=== PATIENT | female | born 1970 | race Two or more races ===

== ENCOUNTER 2024-08-06 06:27 | Inpatient (IN) | payer MEDICAID ==
[~2024-08-06] VITALS: Ht 167.6 cm; Wt 87.3 kg
[~2024-08-06 06:27] MED LIST: IBU600T PO; LOSA100T33 PO; OMEG1CHW2 PO; PANT40TA2 PO
--- NOTE | 2024-08-06 06:56 | ECG ---
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
[2024-08-06 07:30] VITALS: PULSE 74; RESP 20; O2SAT 98
--- NOTE | 2024-08-06 07:36 | ED.PDOC ---
History of Present Illness HPI Comments 53 y/o F, with a history of DM, GERD, HLD, HTN, fatty liver disease, and cholecystectomy, presents with c/o left-sided chest and shoulder pain, shortness of breath, and nausea, today. Per EMS report, patient is a Armenian speaker and endorses on having constant chest wall pain that has been persisting for the past for 2 months. Pain is always there. Pain is unprovoked without palliative or provacative factors. Pain was worse today at around 0200 and 911 was called. Patient comments on pain being pressure-like in quality and rates it a 9/10 in severity at its peak. Patient was noted to have had vitals stable and within normal limits on scene and en route in addition to being given 324mg ASA and 24mg NTG. At time of assessment, patient states on pain improving to a 7/10 now and reports no further relevant or pertinent information, such as recent injuries, sick contact, or strenuous activities. She denies having any palpitations, cough, fever, chills, vomiting, or other associated symptoms or modifiers at this time. Chief Complaint: Chest Pain Time Seen by MD: 07:15 Primary Care Provider: LISY Reviewed Notes: Nurses Notes, Medications, Allergies Allergies: Coded Allergies: NO KNOWN ALLERGIES (Unverified , 01/07/14) Home Meds Active Scripts Ibuprofen Micronized (MOTRIN TABLET) 600 Mg Tb, 600 MG PO TID PRN for 14 Days, #42 TAB *Black box warning-NSAIDS can increase risk of ID & hypertension, GI irritation, ulceration, bleed, perferation. Do not use post cardiac surgery. Use short duration/lowest effective dose. Prov:CLAYTON LAMBERT COMPUTER SUPPORT SPECIALIST INSTRUCTOR 11/19/23 Pantoprazole Sodium Sesquihydr (Protonix) 40 Mg Tab, 40 MG PO DAILY for 30 Days, #30 TAB Prov:CLAYTON LAMBERT COMPUTER SUPPORT SPECIALIST INSTRUCTOR 11/19/23 Reported Medications Howard 3 Fatty Acids-Howard 6 FA (Howard Dha) 1 Chw Chw, 1000 TAB PO DAILY, TAB.CHEW 11/18/23 Losartan Potassium & Hydrochlo (Losartan Potassium/Hydroc) 1 Tab Tab, 1 TAB PO DAILY, #30 TAB 5 Refills 11/18/23 Information Source: Patient Mode of Arrival: EMS Severity: Moderate Timing: Months Duration: Since onset Prehospital treatment: None Past Medical History PAST MEDICAL HISTORY: DM, GERD, High Lipids, HTN, Liver (fatty liver disease ) Surgical History: Cholecystectomy [employer] History: No Pertinent [employer] History Family History Family History: Family hx of DM Social History Smoker: Non-Smoker Alcohol: Denies ETOH Use Drugs: Denies Drug Use Lives In: Home Respiratory: reports: shortness of breath Cardiovascular: reports: chest pain, others (left-shoulder ) Gastrointestinal: reports: nausea All Other Systems: Reviewed and Negative (negative unless otherwise stated above or in HPI) Physical Exam General Appearance: No Apparent Distress, Obese HEENT: Normal ENT Inspection, Pharynx Normal, TMs Normal Neck: Full Range of Motion, Non-Tender, Normal, Normal Inspection Respiratory: Chest Non-Tender, Lungs Clear, No Accessory Muscle Use, No Respiratory Distress, Normal Breath Sounds Cardiovascular: No Edema, No JVD, No Murmur, No Gallop, Normal Peripheral Pulses, Regular Rate/Rhythm Breast Exam: Deferred Gastrointestinal: No Organomegaly, Non Tender, No Pulsatile Mass, Normal Bowel Sounds, Soft Genitalia: Deferred Pelvic: Deferred Rectal: Deferred Extremities: No calf tenderness, Normal capillary refill, Normal inspection, Normal range of motion, Non-tender, No pedal edema Musculoskeletal : Apperance: Normal Neurologic: Alert, digital media associate II-XII nml as Tested, No Motor Deficits, Normal Affect, Normal Mood, No Sensory Deficits Cerebellar Function: Normal Reflexes: Normal Skin: Dry, Normal Color, Warm Lymphatic: No Adenopathy Was a procedure done? Was a procedure done?: No EKG EKG : Pulse Rate (adult): 67 [place]: Normal Cardiac Rhythm: NSR Block: None Hypertrophy: None ST: Normal Differential Dx Considerations may include: ID, ACS, PE, PNA, URI, costochondritis, pericarditis, musculoskeletal pain, angina, GERD, gastritis, viral syndrome X-Ray, Labs, Meds, VS Vital Signs Date Time Temp Pulse Resp B/P (MAP) Pulse Ox O2 Delivery O2 Flow Rate FiO2 08/06/24 07:36 67 08/06/24 07:30 74 20 98 Room Air* 0 21 08/06/24 06:39 98.2 89 18 134/73 (93) 98 08/06/24 06:28 67 Lab Test 08/06/24 07:22 Range/Units White Blood Count 8.3 4.4-10.8 10^3/uL Red Blood Count 4.69 4.0-5.20 10^6/uL Hemoglobin 14.4 12.2-16.2 g/dL Hematocrit 41.9 36.0-46.0 % Mean Corpuscular Volume 89.4 80.0-100.0 fL Mean Corpuscular Hemoglobin 30.8 28.0-32.0 pg Mean Corpuscular Hemoglobin Concent 34.5 32.0-36.0 g/dL Red Cell Distribution Width 13.1 11.8-14.3 % Platelet Count 255 140-450 10^3/uL Mean Platelet Volume 8.5 6.9-10.8 fL Neutrophils (%) (Auto) 55.4 37.0-80.0 % Lymphocytes (%) (Auto) 36.5 10.0-50.0 % Monocytes (%) (Auto) 6.2 0.0-12.0 % Eosinophils (%) (Auto) 1.3 0.0-7.0 % Basophils (%) (Auto) 0.6 0.0-2.0 % Neutrophils # (Auto) 4.6 1.6-8.6 10 ^3/uL Lymphocytes # (Auto) 3.0 0.4-5.4 10 ^3/uL Monocytes # (Auto) 0.5 0-1.3 10 ^3/uL Eosinophils # (Auto) 0.1 0-0.8 10 ^3/uL Basophils # (Auto) 0.1 0-0.2 10 ^3/uL Nucleated Red Blood Cells 0.1 % Prothrombin Time 10.4 9.3-11.8 sec Prothrombin Time INR 0.98 0.9-1.15 Activated Partial Thromboplast Time 27.5 24.5-34.5 SEC D-Dimer, Quantitative 0.49 0.0-0.49 mg/L FEU Sodium Level 140 136-145 mmol/L Potassium Level 4.0 3.5-5.1 mmol/L Chloride Level 105 98-107 mmol/L Carbon Dioxide Level 27 20-31 mmol/L Anion Gap 8 5-15 Blood Urea Nitrogen 14 9-23 mg/dL Creatinine 0.83 0.550-1.02 mg/dL Glomerular Filtration Rate Calc 84 >90 mL/min BUN/Creatinine Ratio 16.9 10.0-20.0 Serum Glucose 147 H 74-106 mg/dL Calcium Level 9.8 8.7-10.4 mg/dL Total Bilirubin Pending Aspartate Amino Transferase (AST) 30 13-40 U/L Alanine Aminotransferase (ALT) 42 H 7-40 U/L Alkaline Phosphatase 89 46-116 U/L Troponin I High Sensitivity < 3 L </=34 ng/L B-Type Natriuretic Peptide 12.58 0-100 pg/mL Total Protein 7.0 5.7-8.2 g/dL Albumin 4.5 3.2-4.8 g/dL X-Ray, Labs, Meds, VS Comment This 53-year-old female with multiple cardiac risk factors presents secondary to left-sided chest pain with radiation that became acutely worse at 2:00 a.m. this morning. She denies any palliative provocative factors that are known to increase or decrease the pain. Her heart score is 4. As such, she will be admitted for further workup management of her likely ACS. I am concerned that she may have unstable angina Time of 1ST Reevaluation: 07:45 Reevaluation 1ST: Unchanged Patient Education/Counseling: Diagnosis, Treatment Family Education/Counseling: No Family Present Departure 1 Departure Time of Disposition: 08:18 Impression: Primary Impression: Chest pain Additional Impression: ACS (acute coronary syndrome) Disposition: 09 ADMITTED INPATIENT Admit to: [facility] Condition: Serious Critical Care Note Critical Care Time?: No Stability Stability form required: No Heart Score Heart Score: Heart Score Response (Comments) Value History Moderate Suspicious 1 EKG Normal 0 Age 45-64 1 Risk Factors >3 or Hx ASHD 2 Troponin Normal limit 0 Total 4 I personally scribed for LORETO FORD MD ([email or web address]) on 08/06/24 at 07:36. Electronically submitted by Quan Cox [email or web address]). LORETO FORD MD Aug 06, 2024 07:36
[2024-08-06 07:41] LABS: Basophils # (auto) 0.1 10 ^3/uL (0-0.2); Basophils % (auto) 0.6 % (0.0-2.0); Eosinophils # (auto) 0.1 10 ^3/uL (0-0.8); Eosinophils % (auto) 1.3 % (0.0-7.0); Hematocrit 41.9 % (36.0-46.0); Hemoglobin 14.4 g/dL (12.2-16.2); Lymphocytes % (auto) 36.5 % (10.0-50.0); Mean Corpuscular Hemoglobin 30.8 pg (28.0-32.0); Mean Corpuscular Hgb Conc. 34.5 g/dL (32.0-36.0); Mean Corpuscular Volume 89.4 fL (80.0-100.0); Monocytes # (auto) 0.5 10 ^3/uL (0-1.3); Monocytes % (auto) 6.2 % (0.0-12.0); Neutrophils # (auto) 4.6 10 ^3/uL (1.6-8.6); Neutrophils % (auto) 55.4 % (37.0-80.0); Nucleated Red Blood Cells % 0.1 %; Platelet Count (auto) 255 10^3/uL (140-450); Red Blood Cells 4.69 10^6/uL (4.0-5.20); Red Cell Distribution Width 13.1 % (11.8-14.3); White Blood Cell 8.3 10^3/uL (4.4-10.8)
[2024-08-06 07:59] LABS: INR 0.98 (0.9-1.15); Partial Thromboplastin Time 27.5 SEC (24.5-34.5); Prothrombin Time 10.4 sec (9.3-11.8)
[2024-08-06 08:03] LABS: Alanine Aminotransferase 42 U/L (7-40); Albumin 4.5 g/dL (3.2-4.8); Alkaline Phosphatase 89 U/L (46-116); Anion Gap 8 (5-15); Aspartate Aminotransferase 30 U/L (13-40); BUN/Creatinine Ratio 16.9 (10.0-20.0); Blood Urea Nitrogen 14 mg/dL (9-23); Calcium 9.8 mg/dL (8.7-10.4); Carbon Dioxide 27 mmol/L (20-31); Chloride 105 mmol/L (98-107); Glucose 147 mg/dL (74-106); Sodium 140 mmol/L (136-145)
[2024-08-06 08:09] LABS: Bilirubin, Total 0.4 mg/dL (0.2-1.0)
[2024-08-06 11:04] LABS: Urine Bacteria FEW /hpf (None Seen); Urine Blood 2+ /uL (Negative); Urine Clarity Turbid (Clear); Urine Color Yellow (Yellow); Urine Hyaline Cast FEW /lpf (0 - 2); Urine Mucus FEW (None Seen); Urine Protein, UAD 3+ (Negative); Urine Specific Gravity 1.026 (1.001-1.035); Urine Squamous Epithelial Cell FEW /hpf (<5); Urine Urobilinogen Normal (Negative); Urine WBC 12 /HPF (0-5)
--- NOTE | 2024-08-06 11:13 | DVH ---
EXAM: XY CHEST PORTABLE Indication: chest pain Technique: Single frontal view of the chest was obtained Comparison: XY CHEST PORTABLE on DOS: 11/17/23 FINDINGS: Lines and Tubes: None Lungs: No focal consolidation. Pleura: No effusion. No pneumothorax. Cardiomediastinal contours: Unremarkable Bones: No acute osseous abnormality. IMPRESSION: No acute cardiopulmonary disease.
[2024-08-06] MEDS ORDERED: ONDANSETRON HCL 4 MG/2 ML VIAL IV PRN (11:15)
[2024-08-06] MEDS ORDERED: MORPHINE SULFATE 4 MG/ML SYR/VIAL IV PRN (11:15)
[2024-08-06] MEDS ORDERED: SIMV10TA20 (11:25)
[2024-08-06] MEDS ORDERED: DEXTROSE (50%) 50ML SYRG IV PRN (11:30)
[2024-08-06] MEDS: InsuLIN REG 1unit/0.01ml Soln (100units/ml) SC SCH (11:30)
--- NOTE | 2024-08-06 11:32 | DVHHP2 ---
History of Present Illness Reason for Visit: Chest pain History of Present Illness Davina Medeiros is a 53-year-old female with past medical history of hypertension, hyperlipidemia, diabetes, GERD, fatty liver disease, and cholecystectomy who presents to the ED for chest pain x2 months. Patient reports that the chest pain radiates to her left shoulder with associated shortness of breath and nausea. Patient reports the pain 7/10 pressure-like and constant. She also reports that this was ongoing a year ago had gone to see her PCP recently and was given a referral to a tool/die maker when some appointment time of 1 year from now. Patient reports that there are no triggering or alleviating factors. She also states that the pain is still present when she is resting. Patient denies any recent illnesses, recent trauma, vomiting, taqueria rrhea, fever, chills, lightheadedness, weakness, recent travels, recent ingestion of spoiled food and dizziness. Cardiovascular: HTN, hyperipidemia GI: GERD Endocrine: Diabetes Past Medical History Fatty liver disease Past Surgical History: Cholecystectomy Family History: None Smoke: No ALCOHOL: none Drugs: None Lives: Roommate Domestic Violence: Neg Review of Systems Constitutional: No: Fever, Chills, Sweats, Weakness, Malaise, Other Eyes: No: Pain, Vision change, Conjunctivae inflammation, Eyelid inflammation, Other, Redness ENT: No: Ear pain, Ear discharge, Nose pain, Nose discharge, Nose congestion, Mouth pain, Mouth swelling, Throat pain, Throat swelling, Other Respiratory: Shortness of breath; No: Cough, Dry, SOB with excertion, Wheezing, Hemoptysis, Pleuritic Pain, Sputum, Wheezing, Other Cardiovascular: Chest Pain; No: Palpitations, Orthopnea, Paroxysmal Noc. Dyspnea, Edema, Lt Headedness, Other Gastrointestinal: Nausea; No: Vomiting, Abdominal Pain, Diarrhea, Constipation, Melena, Hematochezia, Other Genitourinary: No Dysuria, No Frequency, No Incontinence, No Hematuria, No Retention, No Other Musculoskeletal: shoulder pain, arm pain; No: other, neck pain, back pain, hand pain, leg pain, foot pain Skin: No: Rash, Lesions, Jaundice, Bruising, Other Neurological: No: Weakness, Numbness, Incoordination, Change in speech, Confusion, Seizures, Other Allergies: Coded Allergies: NO KNOWN ALLERGIES (Unverified , 01/07/14) Exam Vital Signs Vital Signs Date Time Temp Pulse Resp B/P (MAP) Pulse Ox O2 Delivery O2 Flow Rate FiO2 08/06/24 08:39 98.2 62 18 131/79 (96) 95 98.2 08/06/24 08:39 Room Air 08/06/24 07:30 0 21 General Appearance: Alert, Oriented X3, Cooperative, No acute distress HEENT: Atraumatic, PERRLA, EOMI, Mucous membr. moist/pink Respiratory: Normal air movement Cardiovascular: Regular rate, Normal S1, Normal S2, No murmurs Abdominal: Normal bowel sounds, Soft, No tenderness, No hepatospenomegaly, No masses Extremities: No clubbing, No cyanosis, No edema, Normal pulses, No tenderness/swelling Skin: No rashes, No breakdown, No significant lesion Neuro: Normal gait, Normal speech, Strength at 5/5 X4 ext, Normal tone, Sensation intact Psych/Mental Status: Mental status NL, Mood NL Labs/Xrays Labs Test 08/06/24 08:37 08/06/24 08:17 08/06/24 07:22 Range/Units Urine Color Yellow Yellow Urine Clarity Turbid H Clear Urine pH 6.0 5.0-9.0 Urine Specific [place] 1.026 1.001-1.035 Urine Protein 3+ H Negative Urine Ketones Negative Negative Urine Blood 2+ H Negative /uL Urine Nitrite Negative Negative Urine Bilirubin Negative Negative Urine Urobilinogen Normal Negative mg/dL Urine Leukocyte Esterase 2+ Negative /uL Urine RBC 20 0 - 4 /hpf Urine Microscopic WBC 12 H 0-5 /HPF Urine Squamous Epithelial Cells Few <5 /hpf Urine Bacteria Few H None Seen /hpf Urine Hyaline Casts Few 0 - 2 /lpf Urine Mucus Few None Seen Urine Glucose Normal Normal mg/dL Urine Test Negative Negative Troponin I High Sensitivity < 3 L </=34 ng/L White Blood Count 8.3 4.4-10.8 10^3/uL Red Blood Count 4.69 4.0-5.20 10^6/uL Hemoglobin 14.4 12.2-16.2 g/dL Hematocrit 41.9 36.0-46.0 % Mean Corpuscular Volume 89.4 80.0-100.0 fL Mean Corpuscular Hemoglobin 30.8 28.0-32.0 pg Mean Corpuscular Hemoglobin Concent 34.5 32.0-36.0 g/dL Red Cell Distribution Width 13.1 11.8-14.3 % Platelet Count 255 140-450 10^3/uL Mean Platelet Volume 8.5 6.9-10.8 fL Neutrophils (%) (Auto) 55.4 37.0-80.0 % Lymphocytes (%) (Auto) 36.5 10.0-50.0 % Monocytes (%) (Auto) 6.2 0.0-12.0 % Eosinophils (%) (Auto) 1.3 0.0-7.0 % Basophils (%) (Auto) 0.6 0.0-2.0 % Neutrophils # (Auto) 4.6 1.6-8.6 10 ^3/uL Lymphocytes # (Auto) 3.0 0.4-5.4 10 ^3/uL Monocytes # (Auto) 0.5 0-1.3 10 ^3/uL Eosinophils # (Auto) 0.1 0-0.8 10 ^3/uL Basophils # (Auto) 0.1 0-0.2 10 ^3/uL Nucleated Red Blood Cells 0.1 % Prothrombin Time 10.4 9.3-11.8 sec Prothrombin Time INR 0.98 0.9-1.15 Activated Partial Thromboplast Time 27.5 24.5-34.5 SEC D-Dimer, Quantitative 0.49 0.0-0.49 mg/L FEU Sodium Level 140 136-145 mmol/L Potassium Level 4.0 3.5-5.1 mmol/L Chloride Level 105 98-107 mmol/L Carbon Dioxide Level 27 20-31 mmol/L Anion Gap 8 5-15 Blood Urea Nitrogen 14 9-23 mg/dL Creatinine 0.83 0.550-1.02 mg/dL Glomerular Filtration Rate Calc 84 >90 mL/min BUN/Creatinine Ratio 16.9 10.0-20.0 Serum Glucose 147 H 74-106 mg/dL Calcium Level 9.8 8.7-10.4 mg/dL Total Bilirubin 0.4 0.2-1.0 mg/dL Aspartate Amino Transferase (AST) 30 13-40 U/L Alanine Aminotransferase (ALT) 42 H 7-40 U/L Alkaline Phosphatase 89 46-116 U/L B-Type Natriuretic Peptide 12.58 0-100 pg/mL Total Protein 7.0 5.7-8.2 g/dL Albumin 4.5 3.2-4.8 g/dL Assessment/Plan Assessment/Plan Assessment/Plan: Unstable angina UTI IV ABx- ceftriaxone HCG negative Aspirin and nitro given in ED UA EKG Troponin negative x2 BNP D-dimer Chest x-ray PT/PTT Mag level Magnesium IV ordered ACS protocol A.m. labs Echo ordered Last echo on 10/29/2023 EF 55% TSH Lipid UDS Diabetes type 2 uncontrolled Hemoglobin A1c ISS and Accu-Cheks Chronic hypertension Continue home medications Chronic hyperlipidemia Continue medications Chronic GERD Protonix History of fatty liver disease Follow up outpatient with PCP FEN/PPX Diet Hep-Lock DVT prophylaxis not indicated patient ambulating PUD prophylaxis-continue home medications, Protonix home medications reconciled discussed plan of care with patient and nurse Admit to tele Plan discussed with: Patient Date of Service: Aug 06, 2024 Billing Provider: AMITA GOODRICH Common Visit Codes: [id number] INP/OBS CARE (HIGH) AMITA GOODRICH Aug 06, 2024 11:32
[2024-08-06] MEDS: ACCU-CHEK COMFORT CURVE STRIP VI SCH (11:43)
[2024-08-06] MEDS: ASPirin 81 mg TAB PO SCH (11:44)
[2024-08-06] MEDS: MAGNESIUM SULFATE 1GM/100ML 100 ML IV ONE (12:14)
[2024-08-06 13:01] LABS: Cannabinoid Screen, Urine Neg (NEGATIVE); Cocaine Screen, Urine Neg (NEGATIVE); Opiate Scree,Urine Neg (NEGATIVE); Phencyclidine Screen, Urine Neg (NEGATIVE)
[2024-08-06 13:06] LABS: Triglycerides 121 mg/dL (< 150)
[2024-08-06 13:08] LABS: HDL Cholesterol 57 mg/dL (40-59)
[2024-08-06 13:09] LABS: Cholesterol 200 mg/dL (< 200); LDL Cholesterol 142 mg/dL (< 100)
[2024-08-06 13:21] LABS: Barbiturate Scree,Urine Neg (NEGATIVE); Benzodiazephine Screen, Urine Neg (NEGATIVE)
[2024-08-06 14:04] LABS: Amphetamine Screen, Urine Neg (NEGATIVE)
[2024-08-06 15:20] VITALS: BP 134/86; PULSE 62; RESP 18; TEMP 98.2; O2SAT 98
[2024-08-06 16:58] VITALS: BP 134/86; PULSE 62; RESP 18; TEMP 98.6; O2SAT 98
[2024-08-06 20:57] VITALS: BP 134/79; PULSE 63; RESP 18; TEMP 98; O2SAT 98
[2024-08-06] MEDS: ATORVASTATIN 20 MG TAB PO SCH (21:55)
[2024-08-06 22:15] VITALS: BP 147/76; PULSE 60; RESP 18; TEMP 98.1; O2SAT 97
[2024-08-06] MEDS: ACETAMINOPHEN 325 MG TAB PO PRN (23:52)
[2024-08-07] VITALS (8 sets, daily range): BP systolic 138–159; BP diastolic 77–90; PULSE 57–95; RESP 18; TEMP 97.5–98.2; O2SAT 95–98
[2024-08-07] MEDS: hydrALAZINE HCL 20 MG/ML VL IV PRN (04:34)
[2024-08-07 06:32] LABS: Chloride 107 mmol/L (98-107); Potassium 3.8 mmol/L (3.5-5.1); Sodium 139 mmol/L (136-145)
[2024-08-07 06:33] LABS: Anion Gap 7 (5-15); Calcium 9.8 mg/dL (8.7-10.4); Carbon Dioxide 25 mmol/L (20-31)
[2024-08-07 06:38] LABS: BUN/Creatinine Ratio 19.7 (10.0-20.0); Blood Urea Nitrogen 14 mg/dL (9-23)
[2024-08-07 06:39] LABS: Glucose 141 mg/dL (74-106); Magnesium 2.1 mg/dL (1.6-2.6)
[2024-08-07 07:05] LABS: Basophils # (auto) 0 10 ^3/uL (0-0.2); Basophils % (auto) 0.6 % (0.0-2.0); Eosinophils # (auto) 0.1 10 ^3/uL (0-0.8); Eosinophils % (auto) 1.4 % (0.0-7.0); Hematocrit 43.4 % (36.0-46.0); Hemoglobin 14.7 g/dL (12.2-16.2); Lymphocytes # (auto) 2.8 10 ^3/uL (0.4-5.4); Mean Corpuscular Hemoglobin 30.5 pg (28.0-32.0); Mean Corpuscular Hgb Conc. 33.9 g/dL (32.0-36.0); Mean Corpuscular Volume 89.9 fL (80.0-100.0); Monocytes # (auto) 0.4 10 ^3/uL (0-1.3); Monocytes % (auto) 5.7 % (0.0-12.0); Neutrophils # (auto) 4.4 10 ^3/uL (1.6-8.6); Neutrophils % (auto) 56.3 % (37.0-80.0); Nucleated Red Blood Cells % 0.1 %; Platelet Count (auto) 255 10^3/uL (140-450); Red Blood Cells 4.83 10^6/uL (4.0-5.20); White Blood Cell 7.8 10^3/uL (4.4-10.8)
[2024-08-07] MEDS: FATTY ACIDS OMEGA PO SCH (10:00)
[2024-08-07] MEDS: OMEGA FA PO SCH (10:00)
[2024-08-07] MEDS: LOSARTAN POTASSIUM 50 MG TAB PO SCH (10:00)
[2024-08-07] MEDS: PANTOPRAZOLE 40 MG TAB PO SCH (12:07)
[2024-08-07] MEDS: cefTRIAXone 1GM/50ML D5W 50 ML IV SCH (12:07)
[2024-08-07] MEDS: hydroCHLOROthiazide 25 MG TAB PO SCH (12:12)
--- NOTE | 2024-08-07 13:09 | DVHPN2 ---
Reviewed: Care Plan, H&P, Labs, Medications, Previous Orders, Radiology Changes from previous H/P or p: No Changes Eyes: No Pain, No Vision change, No Conjunctivae inflammation, No Eyelid inflammation, No Other, No Redness ENT: No Ear pain, No Ear discharge, No Nose pain, No Nose discharge, No Nose congestion, No Mouth pain, No Mouth swelling, No Throat pain, No Throat swelling, No Other Cardiovascular: Chest Pain; No Palpitations, No Orthopnea, No Paroxysmal Noc. Dyspnea, No Edema, No Lt Headedness, No Other Respiratory: No Cough, No Dry; Shortness of breath; No SOB with excertion, No Wheezing, No Hemoptysis, No Pleuritic Pain, No Sputum, No Other Gastrointestinal: Nausea; No Vomiting, No Abdominal Pain, No Diarrhea, No Constipation, No Melena, No Hematochezia, No Other Genitourinary: No Dysuria, No Frequency, No Incontinence, No Hematuria, No Retention, No Other Musculoskeletal: No other, No neck pain; shoulder pain, arm pain; No back pain, No hand pain, No leg pain, No foot pain Skin: No Rash, No Lesions, No Jaundice, No Bruising, No Other Objective Vitals Vital Signs Date Time Temp Pulse Resp B/P (MAP) Pulse Ox O2 Delivery O2 Flow Rate FiO2 08/07/24 12:18 98.0 66 18 146/90 (108) 98 98.0 08/06/24 15:20 Room Air* 0 21 Medications Current Medications Medications Dose Ordered Sig/Lenard Route Start Time Stop Time Status Last Admin Dose Admin Aspirin 81 mg DAILY PO 08/06/24 11:35 08/07/24 12:07 81 MG Atorvastatin Calcium 40 mg HS PO 08/06/24 22:00 08/06/24 21:55 40 MG Morphine Sulfate 2 mg Q30MP PRN IV 08/06/24 11:15 Acetaminophen 650 mg Q6HP PRN PO 08/06/24 11:15 08/07/24 06:18 650 MG Nitroglycerin 0.4 mg Q5MINP PRN SL 08/06/24 11:15 Ondansetron HCl 4 mg Q4HP PRN IV 08/06/24 11:15 Pantoprazole Sodium 40 mg DAILY PO 08/07/24 10:00 08/07/24 12:07 40 MG Losartan Potassium 100 mg DAILY PO 08/07/24 10:00 08/07/24 12:16 100 MG Patient Own Medication 1 tab DAILY PO 08/07/24 10:00 Diagnostic Test (Pha) 1 strip ACHS 08/06/24 11:30 08/07/24 12:16 1 STRIP Insulin Human Regular ACHS SC 08/06/24 11:30 08/07/24 06:20 2 UNITS Dextrose 50 ml UD PRN IV 08/06/24 11:30 Hydrochlorothiazide 12.5 mg DAILY PO 08/07/24 10:00 08/07/24 12:12 12.5 MG Hydralazine HCl 10 mg Q6HP PRN IV 08/07/24 04:30 08/07/24 04:34 10 MG Ceftriaxone Sodium 50 ml @ 100 mls/hr DAILY@09 IV 08/07/24 09:00 08/07/24 12:07 100 MLS/HR Laboratory Results Laboratory Tests 08/07/24 06:09 Chemistry Test 08/07/24 06:09 Calcium Level 9.8 mg/dL (8.7-10.4) Magnesium Level 2.1 mg/dL (1.6-2.6) Urinalysis Test 08/06/24 08:37 Urine Color Yellow (Yellow) Urine Clarity Turbid (Clear) H Urine pH 6.0 (5.0-9.0) Urine Specific [place] 1.026 (1.001-1.035) Urine Protein 3+ (Negative) H Urine Ketones Negative (Negative) Urine Blood 2+ /uL (Negative) H Urine Nitrite Negative (Negative) Urine Bilirubin Negative (Negative) Urine Urobilinogen Normal mg/dL (Negative) Urine Leukocyte Esterase 2+ /uL (Negative) Urine RBC 20 /hpf (0 - 4) Urine Microscopic WBC 12 /HPF (0-5) H Urine Squamous Epithelial Cells Few /hpf (<5) Urine Bacteria Few /hpf (None Seen) H Urine Hyaline Casts Few /lpf (0 - 2) Urine Mucus Few (None Seen) Urine Glucose Normal mg/dL (Normal) Urine Test Negative (Negative) Labs and/or images reviewed: Labs reviewed by me, Image(s) reviewed by me Assessment/Plan Assessment/Plan Unstable angina: Aspirin treatment per ACS protocol consult for Dr. De Jesus Uncontrolled diabetes Hypotension Hyperlipidemia: Lipitor GERD Fatty liver] UTI: Urine cultures Rocephin Time spent 50 minutes Plan discussed with: Patient My Orders Orders - KORTNEY COLES MD Procedure Category Date Status Time * Cardiology Consult CONS 08/07/24 Transmitted 13:06 Date of Service: Aug 07, 2024 Billing Provider: KORTNEY COLES MD Common Visit Codes: [id number] INP/OBS CARE(HIGH) KORTNEY COLES MD Aug 07, 2024 13:09
--- NOTE | 2024-08-07 15:24 | DVHSR ---
APPROVED REPORT EXAM: Two-dimensional and M-mode echocardiogram with Doppler and color Doppler. Blood Pressure: 159/77 mmHg INDICATION Chest Pain RISK FACTORS Height: 66, Weight: 220 DIMENSIONS LVDd (3.8-5.7cm)LA (2D)3.6 (1.9-4.0cm)Aortic Root3.1 (2.0-3.7cm) LVDs (2.5-4.0cm)LA (MM) (1.9-4.0cm)Aortic Cusp Exc1.8 (1.5-2.0cm) EF (%) 66.0 (55-70%)Rt. Atrium4.5 (1.9-4.0cm)Asc. Aorta cm Mitral Valve MitralMitral Stenosis E wave0.68m/sMV Mean GR.mmHg A wave0.90m/sMV Peak GR.81mmHg E/A ratio0.82D MVAcm2 DECEL [id number] 1/2 [id number] IVRTmsDop MVA2.55cm2 Aortic Valve Aortic ValveAortic Stenosis V11.38m/Hamzah Mean GR.6mmHg V21.76m/Hamzah Peak GR.12mmHg LVOT Diameter1.9 (1.8-2.4cm)Doppler AVA2.22cm2 Pulmonic Valve V21.19m/s Tricuspid Valve TR Velocity2.49m/s [id number] Other Information Technically limited study due to body habitus. Conclusion lvef 65% by visual estimate grade 1 diastolic dysfunction moderate lvh normal RV functio left atrium enlarged no severe valve abnormalities noted
--- NOTE | 2024-08-07 15:50 | DVHINCON2 ---
Date Seen: Aug 07, 2024 Referring Physician MD Luis Reason for Consultation Chest pain History of Present Illness This is a Uzbek-speaking 53-year-old female patient who presents to the emergency room with worsening chest pain x 1 year. She reports that she called emergency medical services on the day of admission because she became afraid when she started experiencing left arm pain. The patient describes the chest pain as unprovoked, constant, pressure-like in nature, left-sided with radiation down her left arm. Associated symptoms include shortness of breath. The patient reports that she has had chest pain for well over one year (records show admissions from 2013 with complaints of chest pain. She states that she has also has been seen at [facility] and states that she has never had an angiogram. The patient was seen here in October 2023 in which she underwent a treadmill stress test that was negative. Initial twelve lead electrocardiogram for this admission reveals normal sinus rhythm without any significant ST segmen t changes. Serial troponin levels have been negative. Significant past medical history includes hypertension, hyperlipidemia, jme-yinokmj-rlryunhul type 2 diabetes mellitus, GERD, renal carcinoma status post chemotherapy x 8 years ago, and obesity. The patient reports that she has established care with a paper roller in the outpatient setting (she does not remember his name). She reports trying to schedule an appointment with him to see them as outpatient, but was told by his staff that they have no appointments until next year. Past Medical History Past medical history reviewed. No other significant than mentioned above. Past Surgical History Cholecystectomy Bilateral tubal ligation Family History: Alcoholism G8 FATHER, Onset:30's - 40 Arthritis Diabetes mellitus G8 MOTHER, Onset:30's - 40 Family history: Hypertension Family History Family history reviewed. Social History Denies the use of tobacco, alcohol or illicit drugs. Allergies: Coded Allergies: NO KNOWN ALLERGIES (Unverified , 01/07/14) Home Meds Active Scripts Ibuprofen Micronized (MOTRIN TABLET) 600 Mg Tb, 600 MG PO TID PRN for 14 Days, #42 TAB *Black box warning-NSAIDS can increase risk of [place] & hypertension, GI irritation, ulceration, bleed, perferation. Do not use post cardiac surgery. Use short duration/lowest effective dose. Prov:CLAYTON LAMBERT ROUGE SIFTER 11/19/23 Pantoprazole Sodium Sesquihydr (Protonix) 40 Mg Tab, 40 MG PO DAILY for 30 Days, #30 TAB Prov:CLAYTON LAMBERT ROUGE SIFTER 11/19/23 Reported Medications Simvastatin (Simvastatin) 10 Mg Tab, 1 DAILY 08/06/24 [place] 3 Fatty Acids-[place] 6 FA ([place] Dha) 1 Chw Chw, 1000 TAB PO DAILY, TAB.CHEW 11/18/23 Losartan Potassium & Hydrochlo (Losartan Potassium/Hydroc) 1 Tab Tab, 1 TAB PO DAILY, #30 TAB 5 Refills 11/18/23 Home Meds Home medications reviewed. Current Medications Current Medications Medications (Trade) Dose Ordered Sig/Lenard Route PRN Reason Start Time Stop Time Status Last Admin Atorvastatin Calcium (Lipitor) 40 mg HS PO 08/06/24 22:00 08/06/24 21:55 Pantoprazole Sodium (Protonix Tablet) 40 mg DAILY PO 08/07/24 10:00 08/07/24 12:07 Losartan Potassium (Cozaar Tablet) 100 mg DAILY PO 08/07/24 10:00 08/07/24 12:16 Patient Own Medication 1 tab DAILY PO 08/07/24 10:00 Hydrochlorothiazide (hydroCHLOROthiazide TABLET) 12.5 mg DAILY PO 08/07/24 10:00 08/07/24 12:12 Hydralazine HCl (Apresoline Injection) 10 mg Q6HP PRN IV SBP>150 08/07/24 04:30 08/07/24 04:34 Ceftriaxone Sodium 50 ml @ 100 mls/hr DAILY@09 IV 08/07/24 09:00 08/07/24 12:07 Review of Systems Constitutional: No symptom reported Ears, Nose, & Throat: No symptom reported Eyes: No symptom reported Neurological: No symptoms reported Pulmonary/Respiratory: Shortness of breath Cardiovascular: Chest pain Gastrointestinal: No symptom reported Genitourinary: No symptom reported Musculoskeletal: No symptom reported Skin: No symptom reported Psychiatric: No symptom reported Endocrine: No symptom reported Hematologic/Lymphatic: No symptom reported Vital Signs Vital Signs Date Time Temp Pulse Resp B/P (MAP) Pulse Ox O2 Delivery O2 Flow Rate FiO2 08/07/24 12:18 98.0 66 18 146/90 (108) 98 98.0 08/06/24 15:20 Room Air* 0 21 Physical Exam General Appearance: Cooperative. Well-developed. Well-nourished. No acute distress. Pulmonary/Respiratory: Clear, bilateral breaths sounds. Cardiovascular/Chest: Regular rate and rhythm. Peripheral Pulses: 2+ Radial (R). 2+ Radial (L). 2+ Pedal (R). 2+ Pedal (L) Abdominal Exam: Normal bowel sounds. Ankle Exam: Negative ankle edema Lower extremities: Negative lower extremity edema Neuro/Mental Status: A/OX4, coherent. Thoughts/Psych: Normal thought pattern. Appropriate mood and affect. Good judgment and insight. Appearance: No acute distress. Skin Exam: Normal inspection. Normal color. Warm and dry. Labs/Diagnostic Data Labs Test 08/07/24 11:34 08/07/24 06:09 08/06/24 12:04 08/06/24 08:37 Range/Units POC Glucose 121 H 70-106 mg/dl White Blood Count 7.8 4.4-10.8 10^3/uL Red Blood Count 4.83 4.0-5.20 10^6/uL Hemoglobin 14.7 12.2-16.2 g/dL Hematocrit 43.4 36.0-46.0 % Mean Corpuscular Volume 89.9 80.0-100.0 fL Mean Corpuscular Hemoglobin 30.5 28.0-32.0 pg Mean Corpuscular Hemoglobin Concent 33.9 32.0-36.0 g/dL Red Cell Distribution Width 13.0 11.8-14.3 % Platelet Count 255 140-450 10^3/uL Mean Platelet Volume 8.6 6.9-10.8 fL Neutrophils (%) (Auto) 56.3 37.0-80.0 % Lymphocytes (%) (Auto) 36.0 10.0-50.0 % Monocytes (%) (Auto) 5.7 0.0-12.0 % Eosinophils (%) (Auto) 1.4 0.0-7.0 % Basophils (%) (Auto) 0.6 0.0-2.0 % Neutrophils # (Auto) 4.4 1.6-8.6 10 ^3/uL Lymphocytes # (Auto) 2.8 0.4-5.4 10 ^3/uL Monocytes # (Auto) 0.4 0-1.3 10 ^3/uL Eosinophils # (Auto) 0.1 0-0.8 10 ^3/uL Basophils # (Auto) 0 0-0.2 10 ^3/uL Nucleated Red Blood Cells 0.1 % Sodium Level 139 136-145 mmol/L Potassium Level 3.8 3.5-5.1 mmol/L Chloride Level 107 98-107 mmol/L Carbon Dioxide Level 25 20-31 mmol/L Anion Gap 7 5-15 Blood Urea Nitrogen 14 9-23 mg/dL Creatinine 0.71 0.550-1.02 mg/dL Glomerular Filtration Rate Calc 101 >90 mL/min BUN/Creatinine Ratio 19.7 10.0-20.0 Serum Glucose 141 H 74-106 mg/dL Calcium Level 9.8 8.7-10.4 mg/dL Magnesium Level 2.1 1.6-2.6 mg/dL Troponin I High Sensitivity < 3 L </=34 ng/L Urine Color Yellow Yellow Urine Clarity Turbid H Clear Urine pH 6.0 5.0-9.0 Urine Specific [place] 1.026 1.001-1.035 Urine Protein 3+ H Negative Urine Ketones Negative Negative Urine Blood 2+ H Negative /uL Urine Nitrite Negative Negative Urine Bilirubin Negative Negative Urine Urobilinogen Normal Negative mg/dL Urine Leukocyte Esterase 2+ Negative /uL Urine RBC 20 0 - 4 /hpf Urine Microscopic WBC 12 H 0-5 /HPF Urine Squamous Epithelial Cells Few <5 /hpf Urine Bacteria Few H None Seen /hpf Urine Hyaline Casts Few 0 - 2 /lpf Urine Mucus Few None Seen Urine Glucose Normal Normal mg/dL Urine Test Negative Negative Urine Opiates Screen Neg NEGATIVE Urine Fentanyl Screen Neg NEGATIVE Urine Barbiturates Screen Neg NEGATIVE Urine Phencyclidine Screen Neg NEGATIVE Urine Amphetamines Screen Neg NEGATIVE Urine Benzodiazepines Screen Neg NEGATIVE Urine Cocaine Screen Neg NEGATIVE Urine Cannabinoids Screen Neg NEGATIVE Test 08/06/24 08:17 08/06/24 07:22 Range/Units Triglycerides Level 121 < 150 mg/dL Cholesterol Level 200 H < 200 mg/dL LDL Cholesterol 142 H < 100 mg/dL HDL Cholesterol 57 40-59 mg/dL Thyroid Stimulating Hormone (TSH) 3.44 0.55-4.78 uIU/mL Prothrombin Time 10.4 9.3-11.8 sec Prothrombin Time INR 0.98 0.9-1.15 Activated Partial Thromboplast Time 27.5 24.5-34.5 SEC D-Dimer, Quantitative 0.49 0.0-0.49 mg/L FEU Hemoglobin A1c 6.6 H <5.7 % A1C Total Bilirubin 0.4 0.2-1.0 mg/dL Aspartate Amino Transferase (AST) 30 13-40 U/L Alanine Aminotransferase (ALT) 42 H 7-40 U/L Alkaline Phosphatase 89 46-116 U/L B-Type Natriuretic Peptide 12.58 0-100 pg/mL Total Protein 7.0 5.7-8.2 g/dL Albumin 4.5 3.2-4.8 g/dL Assessment Chest pain, rule out coronary artery disease Hypertension Hyperlipidemia [id number] type 2 diabetes mellitus Obesity Plan/Recommendation We will continue with following plan/recommendations (Dr. De Jesus): * Transthoracic echocardiogram reveals EF 65% * Chest pain protocol * HEART score: 3 points * BP control * Continue lipid-lowering agent * Coronary angiogram Case discussed and reviewed with . Given the patient's clinical presentation and multiple comorbidities, we will recommend for the patient undergo a coronary angiogram with left heart catheterization. Patient may benefit from coronary angiogram with left heart catheterization. The procedure was discussed with the patient in full detail including risks and benefits. Risks include but are not limited to bleeding, contrast-induced nephropathy, stroke, and even . The patient understands and is agreeable to undergo the procedure. Thank you for allowing us to care for this patient. Please call with any questions or concerns. Critical care time spent: 42 minutes This medical document was created using an electronic medical record system with voice recognition software and computerized dictation system. Although this document has been carefully reviewed, there might still be some phonetic and typographical errors. Occasional wrong-word or ``sound-alike substitutions may have occurred due to the inherent limitations of voice recognition software. These areas are purely typographical due to imperfections of the software programs and do not reflect any compromise in the patient's medical care. Please read the chart carefully and recognize, using context, where these substitutions have occurred. Plan discussed with: Patient NYHA Physical activity limitations: NA Date of Service: Aug 07, 2024 Billing Provider: MONY JARAMILLO Cardiology Common Codes: [id number] INP/OBS CARE (High) Cardiology Consultation Codes: [id number] CONSULT <45MIN MONY JARAMILLO Aug 07, 2024 15:50
[2024-08-08] VITALS (8 sets, daily range): BP systolic 117–137; BP diastolic 70–84; PULSE 58–79; RESP 14–18; TEMP 97.6–98; O2SAT 93–96
[2024-08-08] MEDS: NITROGLYCERIN 0.4 MG SL TAB SL PRN (00:30)
[2024-08-08 06:43] LABS: Anion Gap 9 (5-15); Carbon Dioxide 26 mmol/L (20-31); Chloride 105 mmol/L (98-107); Potassium 3.9 mmol/L (3.5-5.1); Sodium 140 mmol/L (136-145)
[2024-08-08 06:49] LABS: BUN/Creatinine Ratio 20.5 (10.0-20.0); Blood Urea Nitrogen 17 mg/dL (9-23)
[2024-08-08 06:57] LABS: Calcium 10.5 mg/dL (8.7-10.4); Glucose 132 mg/dL (74-106)
--- NOTE | 2024-08-08 10:06 | DVHPN2 ---
Reviewed: Care Plan, H&P, Labs, Medications, Previous Orders, Radiology Changes from previous H/P or p: No Changes Eyes: No Pain, No Vision change, No Conjunctivae inflammation, No Eyelid inflammation, No Other, No Redness ENT: No Ear pain, No Ear discharge, No Nose pain, No Nose discharge, No Nose congestion, No Mouth pain, No Mouth swelling, No Throat pain, No Throat swelling, No Other Cardiovascular: Chest Pain; No Palpitations, No Orthopnea, No Paroxysmal Noc. Dyspnea, No Edema, No Lt Headedness, No Other Respiratory: No Cough, No Dry; Shortness of breath; No SOB with excertion, No Wheezing, No Hemoptysis, No Pleuritic Pain, No Sputum, No Other Gastrointestinal: Nausea; No Vomiting, No Abdominal Pain, No Diarrhea, No Constipation, No Melena, No Hematochezia, No Other Genitourinary: No Dysuria, No Frequency, No Incontinence, No Hematuria, No Retention, No Other Musculoskeletal: No other, No neck pain; shoulder pain, arm pain; No back pain, No hand pain, No leg pain, No foot pain Skin: No Rash, No Lesions, No Jaundice, No Bruising, No Other Objective Vitals Vital Signs Date Time Temp Pulse Resp B/P (MAP) Pulse Ox O2 Delivery O2 Flow Rate FiO2 08/08/24 09:34 137/84 08/08/24 08:57 97.6 69 18 93 97.6 08/07/24 20:00 Room Air* 0 21 Intake/Output Intake and Output 08/08/24 07:00 Intake Total 1740 ml Output Total 702 ml Balance 1038 ml Intake Oral 1690 ml IV Total 50 ml Output Urine Total 702 ml # Bowel Movements 1 Medications Current Medications Medications Dose Ordered Sig/Lenard Route Start Time Stop Time Status Last Admin Dose Admin Aspirin 81 mg DAILY PO 08/06/24 11:35 08/08/24 09:33 81 MG Atorvastatin Calcium 40 mg HS PO 08/06/24 22:00 08/07/24 21:11 40 MG Morphine Sulfate 2 mg Q30MP PRN IV 08/06/24 11:15 Acetaminophen 650 mg Q6HP PRN PO 08/06/24 11:15 08/07/24 20:00 650 MG Nitroglycerin 0.4 mg Q5MINP PRN SL 08/06/24 11:15 08/08/24 00:30 0.4 MG Ondansetron HCl 4 mg Q4HP PRN IV 08/06/24 11:15 Pantoprazole Sodium 40 mg DAILY PO 08/07/24 10:00 08/08/24 09:33 40 MG Losartan Potassium 100 mg DAILY PO 08/07/24 10:00 08/08/24 09:33 100 MG Patient Own Medication 1 tab DAILY PO 08/07/24 10:00 Diagnostic Test (Pha) 1 strip ACHS 08/06/24 11:30 08/08/24 06:10 1 STRIP Insulin Human Regular ACHS SC 08/06/24 11:30 08/08/24 06:13 2 UNITS Dextrose 50 ml UD PRN IV 08/06/24 11:30 Hydrochlorothiazide 12.5 mg DAILY PO 08/07/24 10:00 08/08/24 09:34 12.5 MG Hydralazine HCl 10 mg Q6HP PRN IV 08/07/24 04:30 08/07/24 04:34 10 MG Ceftriaxone Sodium 50 ml @ 100 mls/hr DAILY@09 IV 08/07/24 09:00 08/08/24 09:27 100 MLS/HR Laboratory Results Laboratory Tests 08/07/24 06:09 08/08/24 05:31 Chemistry Test 08/08/24 05:31 Calcium Level 10.5 mg/dL (8.7-10.4) H Urinalysis Test 08/06/24 08:37 Urine Color Yellow (Yellow) Urine Clarity Turbid (Clear) H Urine pH 6.0 (5.0-9.0) Urine Specific [place] 1.026 (1.001-1.035) Urine Protein 3+ (Negative) H Urine Ketones Negative (Negative) Urine Blood 2+ /uL (Negative) H Urine Nitrite Negative (Negative) Urine Bilirubin Negative (Negative) Urine Urobilinogen Normal mg/dL (Negative) Urine Leukocyte Esterase 2+ /uL (Negative) Urine RBC 20 /hpf (0 - 4) Urine Microscopic WBC 12 /HPF (0-5) H Urine Squamous Epithelial Cells Few /hpf (<5) Urine Bacteria Few /hpf (None Seen) H Urine Hyaline Casts Few /lpf (0 - 2) Urine Mucus Few (None Seen) Urine Glucose Normal mg/dL (Normal) Urine Test Negative (Negative) Labs and/or images reviewed: Labs reviewed by me, Image(s) reviewed by me Assessment/Plan Assessment/Plan Unstable angina: Aspirin Lipitor, treatment per ACS protocol consult for Dr. De Jesus appreciated, patient is scheduled for left heart cath Uncontrolled diabetes Hypotension Hyperlipidemia: Lipitor GERD Fatty liver] UTI: Urine cultures Rocephin Time spent 50 minutes Plan discussed with: Patient My Orders Orders - KORTNEY COLES MD Procedure Category Date Status Time * Cardiology Consult CONS 08/07/24 Transmitted 13:06 Date of Service: Aug 08, 2024 Billing Provider: KORTNEY COLES MD Common Visit Codes: [id number] INP/OBS CARE(HIGH) KORTNEY COLES MD Aug 08, 2024 10:05
--- NOTE | 2024-08-08 11:08 | ECG ---
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
[2024-08-09] VITALS (9 sets, daily range): BP systolic 119–167; BP diastolic 65–91; PULSE 70–96; RESP 15–18; TEMP 97.3–98.2; O2SAT 95–98
--- NOTE | 2024-08-09 09:51 | DVHPN2 ---
Progress Note Date Seen: Aug 09, 2024 Medical Necessity Reason Pt with a Central, PICC or Fol: No Subjective Patient reports: Feels worse Objective vital signs Vital Sign Date Time Temp Pulse Resp B/P (MAP) Pulse Ox O2 Delivery O2 Flow Rate FiO2 08/09/24 05:00 98.0 71 15 120/81 (94) 95 98.0 08/08/24 20:00 Room Air* 0 21 Total Intake and Output 08/08/24 08/08/24 08/09/24 15:00 23:00 07:00 Intake Total 50 ml 1040 ml Balance 50 ml 1040 ml medications Current Medications Medications Dose Ordered Sig/Lenard Route Start Time Stop Time Status Last Admin Dose Admin Aspirin 81 mg DAILY PO 08/06/24 11:35 08/08/24 09:33 81 MG Atorvastatin Calcium 40 mg HS PO 08/06/24 22:00 08/08/24 23:15 40 MG Morphine Sulfate 2 mg Q30MP PRN IV 08/06/24 11:15 Acetaminophen 650 mg Q6HP PRN PO 08/06/24 11:15 08/09/24 06:18 650 MG Nitroglycerin 0.4 mg Q5MINP PRN SL 08/06/24 11:15 08/08/24 00:30 0.4 MG Ondansetron HCl 4 mg Q4HP PRN IV 08/06/24 11:15 Pantoprazole Sodium 40 mg DAILY PO 08/07/24 10:00 08/08/24 09:33 40 MG Losartan Potassium 100 mg DAILY PO 08/07/24 10:00 08/08/24 09:33 100 MG Patient Own Medication 1 tab DAILY PO 08/07/24 10:00 Diagnostic Test (Pha) 1 strip ACHS 08/06/24 11:30 08/09/24 07:28 1 STRIP Insulin Human Regular ACHS SC 08/06/24 11:30 08/09/24 06:17 2 UNITS Dextrose 50 ml UD PRN IV 08/06/24 11:30 Hydrochlorothiazide 12.5 mg DAILY PO 08/07/24 10:00 08/08/24 09:34 12.5 MG Hydralazine HCl 10 mg Q6HP PRN IV 08/07/24 04:30 08/07/24 04:34 10 MG Ceftriaxone Sodium 50 ml @ 100 mls/hr DAILY@09 IV 08/07/24 09:00 08/08/24 09:27 100 MLS/HR Examination: GENERAL:Abnormal, HEENT:Abnormal, LUNGS:Abnormal, CVS:Abnormal, ABDOMEN:Abnormal laboratory and microbiology Laboratory Tests 08/08/24 05:31 08/07/24 06:09 Test 08/08/24 05:31 Range/Units Serum Glucose 132 H 74-106 mg/dL Problem List/Assessment/Plan Problem List/Assessment/Plan ACS /unstable angina recurrent chest pain obesity HTN Hl pt agrees to [facility] after informed consent pt seen with RN plan for tomorrow npo after 2400 Plan discussed with: Patient Date of Service: Aug 09, 2024 Billing Provider: YANELY DELEON MD Common Visit Codes: NOT BILLABLE YANELY DELEON MD Aug 09, 2024 09:51
--- NOTE | 2024-08-09 11:54 | DVHPN2 ---
Reviewed: Care Plan, H&P, Labs, Medications, Previous Orders, Radiology Changes from previous H/P or p: No Changes Eyes: No Pain, No Vision change, No Conjunctivae inflammation, No Eyelid inflammation, No Other, No Redness ENT: No Ear pain, No Ear discharge, No Nose pain, No Nose discharge, No Nose congestion, No Mouth pain, No Mouth swelling, No Throat pain, No Throat swelling, No Other Cardiovascular: Chest Pain; No Palpitations, No Orthopnea, No Paroxysmal Noc. Dyspnea, No Edema, No Lt Headedness, No Other Respiratory: No Cough, No Dry; Shortness of breath; No SOB with excertion, No Wheezing, No Hemoptysis, No Pleuritic Pain, No Sputum, No Other Gastrointestinal: Nausea; No Vomiting, No Abdominal Pain, No Diarrhea, No Constipation, No Melena, No Hematochezia, No Other Genitourinary: No Dysuria, No Frequency, No Incontinence, No Hematuria, No Retention, No Other Musculoskeletal: No other, No neck pain; shoulder pain, arm pain; No back pain, No hand pain, No leg pain, No foot pain Skin: No Rash, No Lesions, No Jaundice, No Bruising, No Other Objective Vitals Vital Signs Date Time Temp Pulse Resp B/P (MAP) Pulse Ox O2 Delivery O2 Flow Rate FiO2 08/09/24 10:53 147/87 08/09/24 09:00 97.9 70 17 97 97.9 08/08/24 20:00 Room Air* 0 21 Intake/Output Intake and Output 08/09/24 07:00 Intake Total 1090 ml Balance 1090 ml Intake Oral 1040 ml IV Total 50 ml # Voids 7 Medications Current Medications Medications Dose Ordered Sig/Lenard Route Start Time Stop Time Status Last Admin Dose Admin Aspirin 81 mg DAILY PO 08/06/24 11:35 08/09/24 10:51 81 MG Atorvastatin Calcium 40 mg HS PO 08/06/24 22:00 08/08/24 23:15 40 MG Morphine Sulfate 2 mg Q30MP PRN IV 08/06/24 11:15 Acetaminophen 650 mg Q6HP PRN PO 08/06/24 11:15 08/09/24 06:18 650 MG Nitroglycerin 0.4 mg Q5MINP PRN SL 08/06/24 11:15 08/08/24 00:30 0.4 MG Ondansetron HCl 4 mg Q4HP PRN IV 08/06/24 11:15 Pantoprazole Sodium 40 mg DAILY PO 08/07/24 10:00 08/09/24 10:53 40 MG Losartan Potassium 100 mg DAILY PO 08/07/24 10:00 08/09/24 10:52 100 MG Patient Own Medication 1 tab DAILY PO 08/07/24 10:00 Diagnostic Test (Pha) 1 strip ACHS 08/06/24 11:30 08/09/24 07:28 1 STRIP Insulin Human Regular ACHS SC 08/06/24 11:30 08/09/24 06:17 2 UNITS Dextrose 50 ml UD PRN IV 08/06/24 11:30 Hydrochlorothiazide 12.5 mg DAILY PO 08/07/24 10:00 08/09/24 10:53 12.5 MG Hydralazine HCl 10 mg Q6HP PRN IV 08/07/24 04:30 08/07/24 04:34 10 MG Ceftriaxone Sodium 50 ml @ 100 mls/hr DAILY@09 IV 08/07/24 09:00 08/09/24 10:51 100 MLS/HR Laboratory Results Laboratory Tests 08/07/24 06:09 08/08/24 05:31 Urinalysis Test 08/06/24 08:37 Urine Color Yellow (Yellow) Urine Clarity Turbid (Clear) H Urine pH 6.0 (5.0-9.0) Urine Specific [place] 1.026 (1.001-1.035) Urine Protein 3+ (Negative) H Urine Ketones Negative (Negative) Urine Blood 2+ /uL (Negative) H Urine Nitrite Negative (Negative) Urine Bilirubin Negative (Negative) Urine Urobilinogen Normal mg/dL (Negative) Urine Leukocyte Esterase 2+ /uL (Negative) Urine RBC 20 /hpf (0 - 4) Urine Microscopic WBC 12 /HPF (0-5) H Urine Squamous Epithelial Cells Few /hpf (<5) Urine Bacteria Few /hpf (None Seen) H Urine Hyaline Casts Few /lpf (0 - 2) Urine Mucus Few (None Seen) Urine Glucose Normal mg/dL (Normal) Urine Test Negative (Negative) Labs and/or images reviewed: Labs reviewed by me, Image(s) reviewed by me Assessment/Plan Assessment/Plan Unstable angina: Aspirin treatment per ACS protocol consult for Dr. De Jesus appreciated, patient getting left heart cath Uncontrolled diabetes Hypotension Hyperlipidemia: Lipitor GERD Fatty liver] UTI: Urine cultures Rocephin Time spent 50 minutes Plan discussed with: Patient Date of Service: Aug 09, 2024 Billing Provider: KORTNEY COLES MD Common Visit Codes: [id number] INP/OBS CARE(HIGH) KORTNEY COLES MD Aug 09, 2024 11:54
[2024-08-10] VITALS (13 sets, daily range): BP systolic 110–149; BP diastolic 67–97; PULSE 62–86; RESP 12–19; TEMP 97.5–98.4; O2SAT 93–95
[2024-08-10] MEDS: IODIXANOL 320MG/ML 100ML BTL IV ONE (08:05)
[2024-08-10 08:19] LABS: Chloride 104 mmol/L (98-107); Potassium 3.8 mmol/L (3.5-5.1); Sodium 139 mmol/L (136-145)
[2024-08-10 08:20] LABS: Calcium 10.2 mg/dL (8.7-10.4)
[2024-08-10 08:21] LABS: Anion Gap 8 (5-15); Carbon Dioxide 27 mmol/L (20-31)
[2024-08-10 08:25] LABS: INR 1.03 (0.9-1.15); Partial Thromboplastin Time 27.1 SEC (24.5-34.5); Prothrombin Time 10.9 sec (9.3-11.8)
[2024-08-10 08:26] LABS: BUN/Creatinine Ratio 19.8 (10.0-20.0); Blood Urea Nitrogen 18 mg/dL (9-23)
[2024-08-10] MEDS: HEPARIN SODIUM (PORCINE) 5000 UNITS/ML 1ML VIAL ONE (08:26)
[2024-08-10] MEDS: fentaNYL CITRATE 100 MCG/2 ML VL ONE (08:26)
[2024-08-10] MEDS: VERAPAMIL 2.5MG/ML INJ 2ML VIAL IV ONE (08:26)
[2024-08-10] MEDS: ANGIOMAX 250 MG VIAL IV ONE (08:26)
[2024-08-10] MEDS: MIDAZOLAM HCL 2MG/2ML 2ml VIAL (1mg/ml) ONE (08:27)
[2024-08-10] MEDS: LIDOCAINE 2%HCL (LOCAL ANESTH.) INJ 20ML MDV ONE (08:27)
[2024-08-10] MEDS: SODIUM CHL 0.9% 0 ML ONE (08:27)
[2024-08-10 08:28] LABS: Glucose 130 mg/dL (74-106)
[2024-08-10 08:44] LABS: Basophils # (auto) 0 10 ^3/uL (0-0.2); Basophils % (auto) 0.6 % (0.0-2.0); Eosinophils # (auto) 0.1 10 ^3/uL (0-0.8); Eosinophils % (auto) 0.8 % (0.0-7.0); Hematocrit 44.5 % (36.0-46.0); Lymphocytes # (auto) 2.9 10 ^3/uL (0.4-5.4); Lymphocytes % (auto) 38.7 % (10.0-50.0); Mean Corpuscular Hemoglobin 30.2 pg (28.0-32.0); Mean Corpuscular Hgb Conc. 33.6 g/dL (32.0-36.0); Mean Corpuscular Volume 89.9 fL (80.0-100.0); Monocytes # (auto) 0.4 10 ^3/uL (0-1.3); Monocytes % (auto) 5.5 % (0.0-12.0); Neutrophils # (auto) 4.1 10 ^3/uL (1.6-8.6); Neutrophils % (auto) 54.4 % (37.0-80.0); Nucleated Red Blood Cells % 0.1 %; Platelet Count (auto) 252 10^3/uL (140-450); Red Blood Cells 4.96 10^6/uL (4.0-5.20); White Blood Cell 7.5 10^3/uL (4.4-10.8)
--- NOTE | 2024-08-10 09:55 | DVHPN2 ---
Progress Note Date Seen: Aug 10, 2024 Medical Necessity Reason Pt with a Central, PICC or Fol: No Subjective Patient reports: Feels better Other Systems: sp cath no cad Objective vital signs Vital Sign Date Time Temp Pulse Resp B/P (MAP) Pulse Ox O2 Delivery O2 Flow Rate FiO2 08/10/24 05:00 97.8 86 19 121/75 (90) 95 97.8 08/09/24 20:00 Room Air* 0 21 Total Intake and Output 08/09/24 08/09/24 08/10/24 15:00 23:00 07:00 Intake Total 50 ml 1125 ml 200 ml Balance 50 ml 1125 ml 200 ml medications Current Medications Medications Dose Ordered Sig/Lenard Route Start Time Stop Time Status Last Admin Dose Admin Aspirin 81 mg DAILY PO 08/06/24 11:35 08/09/24 10:51 81 MG Atorvastatin Calcium 40 mg HS PO 08/06/24 22:00 08/09/24 22:48 40 MG Morphine Sulfate 2 mg Q30MP PRN IV 08/06/24 11:15 Acetaminophen 650 mg Q6HP PRN PO 08/06/24 11:15 08/10/24 06:21 650 MG Nitroglycerin 0.4 mg Q5MINP PRN SL 08/06/24 11:15 08/08/24 00:30 0.4 MG Ondansetron HCl 4 mg Q4HP PRN IV 08/06/24 11:15 Pantoprazole Sodium 40 mg DAILY PO 08/07/24 10:00 08/09/24 10:53 40 MG Losartan Potassium 100 mg DAILY PO 08/07/24 10:00 08/09/24 10:52 100 MG Patient Own Medication 1 tab DAILY PO 08/07/24 10:00 Diagnostic Test (Pha) 1 strip ACHS 08/06/24 11:30 08/10/24 06:21 1 STRIP Insulin Human Regular ACHS SC 08/06/24 11:30 08/10/24 06:19 2 UNITS Dextrose 50 ml UD PRN IV 08/06/24 11:30 Hydrochlorothiazide 12.5 mg DAILY PO 08/07/24 10:00 08/09/24 10:53 12.5 MG Hydralazine HCl 10 mg Q6HP PRN IV 08/07/24 04:30 08/09/24 12:35 10 MG Ceftriaxone Sodium 50 ml @ 100 mls/hr DAILY@09 IV 08/07/24 09:00 08/09/24 10:51 100 MLS/HR Examination: GENERAL:Abnormal, HEENT:Abnormal, LUNGS:Abnormal, CVS:Abnormal, ABDOMEN:Abnormal laboratory and microbiology Laboratory Tests 08/10/24 07:39 Test 08/10/24 07:39 Range/Units Serum Glucose 130 H 74-106 mg/dL Problem List/Assessment/Plan Problem List/Assessment/Plan ACS /unstable angina recurrent chest pain obesity HTN Hl pt agrees to [facility] after informed consent pt seen with RN plan for tomorrow npo after 2400 [facility] no severe cad non cardaic chest pain NSAIDs as needed can offer 4 weeks of colchicine dc home when stable Plan discussed with: Patient My Orders My Orders Orders - YANELY DELEON MD Procedure Category Date Status Time Cl Left Heart Cath CL 08/10/24 Taken 07:26 Date of Service: Aug 10, 2024 Billing Provider: YANELY DELEON MD Common Visit Codes: NOT BILLABLE YANELY DELEON MD Aug 10, 2024 09:55
--- NOTE | 2024-08-10 09:56 | DVHOP2 ---
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 PREOPERATIVE DIAGNOSES: ACS POSTOP DIAGNOSIS: non cardiac chest pain DESCRIPTION OF PROCEDURE: The patient or appropriate family signed informed consent understanding the risks, benefits and alternatives of the procedure, they wished to proceed. The patient was brought to the cardiac lab asst in n.p.o. state. The patient was prepped in a sterile fashion. Sedation was used per cardiac cath protocol. I administered 2 mL of 2% lidocaine to the right wrist. With an antegrade front wall puncture. I cannulated the right radial artery and placed a 6-[place] Glides[place]ath slender. Next, an intra-arterial spasmolytic was administered. Next, a - 6[place] catheter andJR4 and were used for coronary angiogram and LVEDP measurement and pressure pullback. At the completion of procedure, all guides and wires were removed, and there were no immediate complications. FINDINGS: RCA: Moderate vessel off the right sinus of Valsalva, there is no severe flow limiting stenosis. LEFT MAIN: Moderate size left main, it bifurcates into LAD and circumflex. CIRCUMFLEX: Moderate caliber vessel coming off the left main with no flow limiting stenosis. LAD: LAD is a moderate caliber vessel coming of the left main. LVEDP of 9 mmhg CONCLUSIONS: 1. no severe cad noted 2. normal lvedp PLAN: Aggressive risk factor modification and medical management for the patient. YANELY DELEON MD Aug 10, 2024 09:56
[2024-08-10] MEDS ORDERED: LEVO500T91 PO (12:53)
[2024-08-10] MEDS ORDERED: HYDR-4902 PO (12:53)
--- NOTE | 2024-08-10 12:56 | DVHPN2 ---
Reviewed: Care Plan, H&P, Labs, Medications, Previous Orders, Radiology Changes from previous H/P or p: No Changes Eyes: No Pain, No Vision change, No Conjunctivae inflammation, No Eyelid inflammation, No Other, No Redness ENT: No Ear pain, No Ear discharge, No Nose pain, No Nose discharge, No Nose congestion, No Mouth pain, No Mouth swelling, No Throat pain, No Throat swelling, No Other Cardiovascular: Chest Pain; No Palpitations, No Orthopnea, No Paroxysmal Noc. Dyspnea, No Edema, No Lt Headedness, No Other Respiratory: No Cough, No Dry; Shortness of breath; No SOB with excertion, No Wheezing, No Hemoptysis, No Pleuritic Pain, No Sputum, No Other Gastrointestinal: Nausea; No Vomiting, No Abdominal Pain, No Diarrhea, No Constipation, No Melena, No Hematochezia, No Other Genitourinary: No Dysuria, No Frequency, No Incontinence, No Hematuria, No Retention, No Other Musculoskeletal: No other, No neck pain; shoulder pain, arm pain; No back pain, No hand pain, No leg pain, No foot pain Skin: No Rash, No Lesions, No Jaundice, No Bruising, No Other Objective Vitals Vital Signs Date Time Temp Pulse Resp B/P (MAP) Pulse Ox O2 Delivery O2 Flow Rate FiO2 08/10/24 12:37 97.8 62 16 125/97 (106) 95 97.8 08/10/24 08:00 Room Air* 0 21 Intake/Output Intake and Output 08/10/24 07:00 Intake Total 1375 ml Balance 1375 ml Intake Oral 1325 ml IV Total 50 ml # Voids 8 # Bowel Movements 1 Medications Current Medications Medications Dose Ordered Sig/Lenard Route Start Time Stop Time Status Last Admin Dose Admin Aspirin 81 mg DAILY PO 08/06/24 11:35 08/10/24 11:41 81 MG Atorvastatin Calcium 40 mg HS PO 08/06/24 22:00 08/09/24 22:48 40 MG Morphine Sulfate 2 mg Q30MP PRN IV 08/06/24 11:15 Acetaminophen 650 mg Q6HP PRN PO 08/06/24 11:15 08/10/24 06:21 650 MG Nitroglycerin 0.4 mg Q5MINP PRN SL 08/06/24 11:15 08/08/24 00:30 0.4 MG Ondansetron HCl 4 mg Q4HP PRN IV 08/06/24 11:15 Pantoprazole Sodium 40 mg DAILY PO 08/07/24 10:00 08/10/24 11:41 40 MG Losartan Potassium 100 mg DAILY PO 08/07/24 10:00 08/10/24 11:43 100 MG Patient Own Medication 1 tab DAILY PO 08/07/24 10:00 Diagnostic Test (Pha) 1 strip ACHS 08/06/24 11:30 08/10/24 11:46 1 STRIP Insulin Human Regular ACHS SC 08/06/24 11:30 08/10/24 11:47 2 UNITS Dextrose 50 ml UD PRN IV 08/06/24 11:30 Hydrochlorothiazide 12.5 mg DAILY PO 08/07/24 10:00 08/10/24 11:46 12.5 MG Hydralazine HCl 10 mg Q6HP PRN IV 08/07/24 04:30 08/09/24 12:35 10 MG Ceftriaxone Sodium 50 ml @ 100 mls/hr DAILY@09 IV 08/07/24 09:00 08/09/24 10:51 100 MLS/HR Laboratory Results Laboratory Tests 08/10/24 07:39 Chemistry Test 08/10/24 07:39 Calcium Level 10.2 mg/dL (8.7-10.4) Coagulation Test 08/10/24 07:39 Prothrombin Time 10.9 sec (9.3-11.8) Prothrombin Time INR 1.03 (0.9-1.15) Activated Partial Thromboplast Time 27.1 SEC (24.5-34.5) Urinalysis Test 08/06/24 08:37 Urine Color Yellow (Yellow) Urine Clarity Turbid (Clear) H Urine pH 6.0 (5.0-9.0) Urine Specific [place] 1.026 (1.001-1.035) Urine Protein 3+ (Negative) H Urine Ketones Negative (Negative) Urine Blood 2+ /uL (Negative) H Urine Nitrite Negative (Negative) Urine Bilirubin Negative (Negative) Urine Urobilinogen Normal mg/dL (Negative) Urine Leukocyte Esterase 2+ /uL (Negative) Urine RBC 20 /hpf (0 - 4) Urine Microscopic WBC 12 /HPF (0-5) H Urine Squamous Epithelial Cells Few /hpf (<5) Urine Bacteria Few /hpf (None Seen) H Urine Hyaline Casts Few /lpf (0 - 2) Urine Mucus Few (None Seen) Urine Glucose Normal mg/dL (Normal) Urine Test Negative (Negative) Labs and/or images reviewed: Labs reviewed by me, Image(s) reviewed by me Assessment/Plan Assessment/Plan Unstable angina: Aspirin treatment per ACS protocol consult for Dr. De Jesus appreciated, left heart catheterization negative for any coronary disease Noncardiac chest pain Uncontrolled diabetes Hypotension Hyperlipidemia: Lipitor GERD Fatty liver] UTI: Urine cultures Rocephin Time spent 50 minutes Plan discussed with: Patient Date of Service: Aug 10, 2024 Billing Provider: KORTNEY COLES MD Common Visit Codes: [id number] INP/OBS CARE(HIGH) KORTNEY COLES MD Aug 10, 2024 12:56
--- NOTE | 2024-08-10 12:58 | DVHDS2 ---
Discharge Summary Date of Admission Aug 06, 2024 at 11:45 Date of Discharge: Aug 10, 2024 Admitting Diagnosis Chest pain Wounds: Left heart catheterization Labs/Diagnostic Data: Laboratory Results Test 08/10/24 11:32 08/10/24 07:39 08/07/24 06:09 08/06/24 12:04 POC Glucose 152 mg/dl (70-106) White Blood Count 7.5 10^3/uL (4.4-10.8) Red Blood Count 4.96 10^6/uL (4.0-5.20) Hemoglobin 15.0 g/dL (12.2-16.2) Hematocrit 44.5 % (36.0-46.0) Mean Corpuscular Volume 89.9 fL (80.0-100.0) Mean Corpuscular Hemoglobin 30.2 pg (28.0-32.0) Mean Corpuscular Hemoglobin Concent 33.6 g/dL (32.0-36.0) Red Cell Distribution Width 13.0 % (11.8-14.3) Platelet Count 252 10^3/uL (140-450) Mean Platelet Volume 8.8 fL (6.9-10.8) Neutrophils (%) (Auto) 54.4 % (37.0-80.0) Lymphocytes (%) (Auto) 38.7 % (10.0-50.0) Monocytes (%) (Auto) 5.5 % (0.0-12.0) Eosinophils (%) (Auto) 0.8 % (0.0-7.0) Basophils (%) (Auto) 0.6 % (0.0-2.0) Neutrophils # (Auto) 4.1 10 ^3/uL (1.6-8.6) Lymphocytes # (Auto) 2.9 10 ^3/uL (0.4-5.4) Monocytes # (Auto) 0.4 10 ^3/uL (0-1.3) Eosinophils # (Auto) 0.1 10 ^3/uL (0-0.8) Basophils # (Auto) 0 10 ^3/uL (0-0.2) Nucleated Red Blood Cells 0.1 % Prothrombin Time 10.9 sec (9.3-11.8) Prothrombin Time INR 1.03 (0.9-1.15) Activated Partial Thromboplast Time 27.1 SEC (24.5-34.5) Sodium Level 139 mmol/L (136-145) Potassium Level 3.8 mmol/L (3.5-5.1) Chloride Level 104 mmol/L (98-107) Carbon Dioxide Level 27 mmol/L (20-31) Anion Gap 8 (5-15) Blood Urea Nitrogen 18 mg/dL (9-23) Creatinine 0.91 mg/dL (0.550-1.02) Glomerular Filtration Rate Calc 75 mL/min (>90) BUN/Creatinine Ratio 19.8 (10.0-20.0) Serum Glucose 130 mg/dL (74-106) Calcium Level 10.2 mg/dL (8.7-10.4) Magnesium Level 2.1 mg/dL (1.6-2.6) Troponin I High Sensitivity < 3 ng/L (</=34) Test 08/06/24 08:37 08/06/24 08:17 08/06/24 07:22 Urine Color Yellow (Yellow) Urine Clarity Turbid (Clear) Urine pH 6.0 (5.0-9.0) Urine Specific [place] 1.026 (1.001-1.035) Urine Protein 3+ (Negative) Urine Ketones Negative (Negative) Urine Blood 2+ /uL (Negative) Urine Nitrite Negative (Negative) Urine Bilirubin Negative (Negative) Urine Urobilinogen Normal mg/dL (Negative) Urine Leukocyte Esterase 2+ /uL (Negative) Urine RBC 20 /hpf (0 - 4) Urine Microscopic WBC 12 /HPF (0-5) Urine Squamous Epithelial Cells Few /hpf (<5) Urine Bacteria Few /hpf (None Seen) Urine Hyaline Casts Few /lpf (0 - 2) Urine Mucus Few (None Seen) Urine Glucose Normal mg/dL (Normal) Urine Test Negative (Negative) Urine Opiates Screen Neg (NEGATIVE) Urine Fentanyl Screen Neg (NEGATIVE) Urine Barbiturates Screen Neg (NEGATIVE) Urine Phencyclidine Screen Neg (NEGATIVE) Urine Amphetamines Screen Neg (NEGATIVE) Urine Benzodiazepines Screen Neg (NEGATIVE) Urine Cocaine Screen Neg (NEGATIVE) Urine Cannabinoids Screen Neg (NEGATIVE) Triglycerides Level 121 mg/dL (< 150) Cholesterol Level 200 mg/dL (< 200) LDL Cholesterol 142 mg/dL (< 100) HDL Cholesterol 57 mg/dL (40-59) Thyroid Stimulating Hormone (TSH) 3.44 uIU/mL (0.55-4.78) D-Dimer, Quantitative 0.49 mg/L FEU (0.0-0.49) Hemoglobin A1c 6.6 % A1C (<5.7) Total Bilirubin 0.4 mg/dL (0.2-1.0) Aspartate Amino Transferase (AST) 30 U/L (13-40) Alanine Aminotransferase (ALT) 42 U/L (7-40) Alkaline Phosphatase 89 U/L (46-116) B-Type Natriuretic Peptide 12.58 pg/mL (0-100) Total Protein 7.0 g/dL (5.7-8.2) Albumin 4.5 g/dL (3.2-4.8) Other Laboratory Tests 08/10/24 07:39 Brief Hx & Hospital Course: 53-year-old female with a history of hypertension hyperlipidemia fatty liver came in complaining of chest pain troponin negative x3 treated per ACS protocol left heart catheterization by Dr. De Jesus negative for coronary artery disease. Mild UTI treated with Rocephin she will go home on Levaquin and Plover. Vitals are stable at the time of discharge. Consults/Reason for consult Cardiology Dr. De Jesus Operations or Procedures Left heart catheterization Condition at Discharge: Fair Final Diagnosis/Problems List Unstable angina: Aspirin treatment per ACS protocol consult for Dr. De Jesus appreciated, left heart catheterization negative for any coronary disease Uncontrolled diabetes Hypotension Hyperlipidemia: Lipitor GERD Fatty liver] UTI: Urine cultures Rocephin Discharge Disposition: Home Discharge Instruct/Medications Diet: Cardiac 2g Na,low cholest Activity: Light activity Medications: Resume all previous home medications Follow up with your primary doctor 35 (Time taken for discharge summary 35 minutes) Discharge Statement: "Patient was advised to return to the ER or call 911 if any headaches, dizziness, shortness of breath, chest pain, abdominal pain, bleeding, fevers, or worsening of medical condition. Patient was counseled about treatment plan, medications, possible side effects, patientverbalized understanding. All questions were answered to the best of my ability. This discharge took greater then 30 minutes in planning, reviewing documentation, counseling the patient, and discussing with other team members." ASSESSMENT ASSESSMENT Hospital Course Improved Assessment Unstable angina: Aspirin treatment per ACS protocol consult for Dr. De Jesus appreciated, left heart catheterization negative for any coronary disease Uncontrolled diabetes Hypotension Hyperlipidemia: Lipitor GERD Fatty liver] UTI: Urine cultures Rocephin Date of Service: Aug 10, 2024 Billing Provider: KORTNEY COLES MD Common Visit Codes: [id number] INP/OBS CARE(HIGH) KORTNEY COLES MD Aug 10, 2024 12:58
== END 2024-08-10 16:02 | disposition home or self-care (01) | DRG 191 ==
LOC: EDBD 06:27 → ER 06:27 → OVERFLOW 11:45 → TELE-EAST 22:05
PROVIDERS: ADMIT Family Medicine; ATTEND Family Medicine
PROC: 4A023N7 Measurement of Cardiac Sampling and Pressure, Left Heart, Percutaneous Approach (ICD-10-PCS; principal; 2024-08-10)
PROC: B2111ZZ Fluoroscopy of Multiple Coronary Arteries using Low Osmolar Contrast (ICD-10-PCS; 2024-08-10)
DX: I20.0 Unstable angina (principal); K76.0 Fatty (change of) liver, not elsewhere classified; I95.9 Hypotension, unspecified; E11.65 Type 2 diabetes mellitus with hyperglycemia; K21.9 Gastro-esophageal reflux disease without esophagitis; E66.9 Obesity, unspecified; E78.5 Hyperlipidemia, unspecified; I10 Essential (primary) hypertension; N39.0 Urinary tract infection, site not specified; Z90.49 Acquired absence of other specified parts of digestive tract; Z83.3 Family history of diabetes mellitus; Z92.21 Personal history of antineoplastic chemotherapy; Z85.528 Personal history of other malignant neoplasm of kidney; Z82.49 Family history of ischemic heart disease and other diseases of the circulatory system; Z68.31 Body mass index [BMI] 31.0-31.9, adult; Z79.4 Long term (current) use of insulin
CPT/HCPCS: 36415; 71045; 80048; 80053; 80061; 80307; 81001; 81025; 82962; 83036; 83735; 83880; 84443; 84484; 85025; 85379; 85610; 85730; 93005; 93306; 93458; 96365; G0378; J1815; J2250; Q9967

== ENCOUNTER 2025-05-28 05:07 | Inpatient (IN) | payer MEDICAID ==
[~2025-05-28] VITALS: Ht 157.5 cm; Wt 81.0 kg
[2025-05-28] VITALS (8 sets, daily range): BP systolic 137–161; BP diastolic 65–89; PULSE 56–69; RESP 13–20; TEMP 98.1–98.3; O2SAT 94–100
[~2025-05-28 05:07] MED LIST changes: +HYDR-4902 PO; +LEVO500T91 PO; +SIMV10TA20
[2025-05-28 06:11] LABS: Hematocrit 44.2 % (36.0-46.0); Hemoglobin 15.3 g/dL (12.2-16.2); Mean Corpuscular Hemoglobin 30.3 pg (28.0-32.0); Mean Corpuscular Volume 87.8 fL (80.0-100.0); Nucleated Red Blood Cells % 0.0 %
[2025-05-28 06:17] LABS: Chloride 104 mmol/L (98-107); Potassium 3.6 mmol/L (3.5-5.1); Sodium 141 mmol/L (136-145)
[2025-05-28 06:18] LABS: Anion Gap 11 (5-15); Calcium 9.3 mg/dL (8.7-10.4); Carbon Dioxide 26 mmol/L (20-31)
[2025-05-28 06:23] LABS: BUN/Creatinine Ratio 12.0 (10.0-20.0); Blood Urea Nitrogen 10 mg/dL (9-23)
[2025-05-28 06:24] LABS: Glucose 109 mg/dL (74-106)
--- NOTE | 2025-05-28 06:33 | DVH ---
EXAM: XY CHEST PORTABLE HISTORY: CP COMPARISON: XY CHEST PORTABLE on DOS: 08/06/24, XY CHEST PORTABLE on DOS: 11/17/23, XR CHEST 1 VIEW on DOS: 06/01/23 TECHNIQUE: Portable AP view of the chest was performed. FINDINGS: No pneumothorax, consolidative infiltrates, or pulmonary edema. The heart is borderline enlarged. IMPRESSION: No acute intrathoracic process.
--- NOTE | 2025-05-28 06:40 | ED.PDOC ---
HPI Comments 54-year-old female presents here with chest discomfort that started 12 days ago. Patient states nothing makes it better nothing makes it worse. Reports pressure-like discomfort and burning pain. With radiation to left arm. Patient states around the same time she began to have a headache times 12 days. Patient states she had chest pain 2 years ago and things got better. But recently when she started Zepbound of the chest pain reoccurred. Patient states she has no leg swelling. She states she is not short of breath. Patient states that she has had no long flights, no recent surgery no recent bedrest. Patient is not on blood thinners. At time of headache patient states 20 days ago she did have a fall but does not recall the exact incident and does not know if she hit her head. She states she has taken ibuprofen 800 mg x2 which initially helped but recently has not. Currently reports chest pain at this time. Chief Complaint: Chest Pain Time Seen by MD: 06:09 Primary Care Provider: LISY Allergies: Coded Allergies: NO KNOWN ALLERGIES (Unverified , 01/07/14) Home Meds Active Scripts Hydrocodone-Acetaminophen (Hydrocodone Bitartrate/AC 5-325 mg) 1 Tab Tab, 1 TAB PO QID PRN, #30 TAB Prov:KORTNEY COLES MD 08/10/24 Levofloxacin Hemihydrate (LEVAQUIN 500 MG) 500 Mg Tab, 1 TAB PO DAILY, #7 TAB Prov:KORTNEY COLES MD 08/10/24 Ibuprofen Micronized (MOTRIN TABLET) 600 Mg Tb, 600 MG PO TID PRN for 14 Days, #42 TAB *Black box warning-NSAIDS can increase risk of DE & hypertension, GI irritation, ulceration, bleed, perferation. Do not use post cardiac surgery. Use short duration/lowest effective dose. Prov:CLAYTON LAMBERT INSPECTOR PACKER 11/19/23 Pantoprazole Sodium Sesquihydr (Protonix) 40 Mg Tab, 40 MG PO DAILY for 30 Days, #30 TAB Prov:CLAYTON LAMBERT INSPECTOR PACKER 11/19/23 Reported Medications Simvastatin (Simvastatin) 10 Mg Tab, 1 DAILY 08/06/24 [place] 3 Fatty Acids-[place] 6 FA ([place] Dha) 1 Chw Chw, 1000 TAB PO DAILY, TAB.CHEW 11/18/23 Losartan Potassium & Hydrochlo (Losartan Potassium/Hydroc) 1 Tab Tab, 1 TAB PO DAILY, #30 TAB 5 Refills 11/18/23 Mode of Arrival: Ambulatory Past Medical History PAST MEDICAL HISTORY: DM, GERD, High Lipids, HTN, Liver Surgical History: Cholecystectomy 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: No Pertinent 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 Family History Family History: Family hx of DM Social History Smoker: Non-Smoker Alcohol: Denies ETOH Use Drugs: Denies Drug Use Lives In: Home All Other Systems: Reviewed and Negative Physical Exam General Appearance: No Apparent Distress, Normal HEENT: Normal ENT Inspection, Pharynx Normal, TMs Normal Neck: Full Range of Motion, Non-Tender, Normal, Normal Inspection Respiratory: Chest Non-Tender, Lungs Clear, No Accessory Muscle Use, No Respiratory Distress, Normal Breath Sounds Cardiovascular: No Edema, No JVD, No Murmur, No Gallop, Normal Peripheral Pulses, Regular Rate/Rhythm Breast Exam: Deferred Gastrointestinal: No Organomegaly, Non Tender, No Pulsatile Mass, Normal Bowel Sounds, Soft Genitalia: Deferred Pelvic: Deferred Rectal: Deferred Extremities: No calf tenderness, Normal capillary refill, Normal inspection, Normal range of motion, Non-tender, No pedal edema Musculoskeletal : Apperance: Normal Neurologic: Alert, radius grinder II-XII nml as Tested, No Motor Deficits, Normal Affect, Normal Mood, No Sensory Deficits Cerebellar Function: Normal Reflexes: Normal Skin: Dry, Normal Color, Warm Lymphatic: No Adenopathy EKG EKG : Comments Rate of 62 sinus rhythm no significant ST changes Was a procedure done? Was a procedure done?: No CP Differential Dx Differential Diagnosis: N/A Differential Diagnosis: N/A Differential Diagnosis: Angina, Aortic dissection, Cholelithiasis, Gastritis, Myocardial Infarction, Pericarditis, Pneumonia, Pneumothorax, Pulmonary Embolus, Other X-Ray, Labs, Meds, VS Vital Signs Date Time Temp Pulse Resp B/P (MAP) Pulse Ox O2 Delivery O2 Flow Rate FiO2 05/28/25 07:12 98.0 73 13 156/93 (114) 94 98.0 05/28/25 07:12 13 94 Room Air* 0 21 05/28/25 06:56 67 18 162/89 05/28/25 06:03 69 13 94 Room Air* 0 21 05/28/25 05:50 98.3 69 13 140/81 (100) 94 98.3 05/28/25 05:22 62 05/28/25 05:17 97.8 70 18 154/85 96 97.8 Lab Test 05/28/25 05:30 Range/Units White Blood Count 6.9 4.4-10.8 10^3/uL Red Blood Count 5.03 4.0-5.20 10^6/uL Hemoglobin 15.3 12.2-16.2 g/dL Hematocrit 44.2 36.0-46.0 % Mean Corpuscular Volume 87.8 80.0-100.0 fL Mean Corpuscular Hemoglobin 30.3 28.0-32.0 pg Mean Corpuscular Hemoglobin Concent 34.5 32.0-36.0 g/dL Red Cell Distribution Width 13.1 11.8-14.3 % Platelet Count 252 140-450 10^3/uL Mean Platelet Volume 8.5 6.9-10.8 fL Neutrophils (%) (Auto) 53.1 37.0-80.0 % Lymphocytes (%) (Auto) 39.1 10.0-50.0 % Monocytes (%) (Auto) 5.8 0.0-12.0 % Eosinophils (%) (Auto) 1.2 0.0-7.0 % Basophils (%) (Auto) 0.8 0.0-2.0 % Neutrophils # (Auto) 3.7 1.6-8.6 10 ^3/uL Lymphocytes # (Auto) 2.7 0.4-5.4 10 ^3/uL Monocytes # (Auto) 0.4 0-1.3 10 ^3/uL Eosinophils # (Auto) 0.1 0-0.8 10 ^3/uL Basophils # (Auto) 0.1 0-0.2 10 ^3/uL Nucleated Red Blood Cells 0.0 % D-Dimer, Quantitative 0.33 0.0-0.49 mg/L FEU Sodium Level 141 136-145 mmol/L Potassium Level 3.6 3.5-5.1 mmol/L Chloride Level 104 98-107 mmol/L Carbon Dioxide Level 26 20-31 mmol/L Anion Gap 11 5-15 Blood Urea Nitrogen 10 9-23 mg/dL Creatinine 0.83 0.550-1.02 mg/dL Glomerular Filtration Rate Calc 83 >90 mL/min BUN/Creatinine Ratio 12.0 10.0-20.0 Serum Glucose 109 H 74-106 mg/dL Calcium Level 9.3 8.7-10.4 mg/dL Magnesium Level 2.3 1.6-2.6 mg/dL Troponin I High Sensitivity 3 L </=34 ng/L Current Medications Medications (Trade) Dose Ordered Sig/Lenard Route Start Time Stop Time Status Last Admin Aspirin 325 mg ONCE ONCE PO 05/28/25 06:45 05/28/25 06:47 DC 05/28/25 06:57 Morphine Sulfate 4 mg ONCE ONCE IV 05/28/25 06:45 05/28/25 06:47 DC 05/28/25 06:56 Ondansetron HCl (Zofran) 4 mg ONCE ONCE IV 05/28/25 06:45 05/28/25 06:47 DC 05/28/25 06:57 54-year-old female with known history of diabetes hypertension cholesterol presents here with chest discomfort. Differential includes acute coronary syndrome as well as PE, pneumonia pneumothorax. Lungs are clear on my examination and chest x-ray with no evidence of pneumonia pneumothorax. CBC BMP, EKG, CT scan of the brain has been ordered. As patient has also been given aspirin morphine and Zofran IV. I reviewed CBC BMP all within normal limits. Troponin is negative . Chest x- ray with no acute abnormality. CT scan of the brain also within normal limits. At this time I am concerned about acute coronary syndrome. Hospitalist team has been contacted for admission. Time of 1ST Reevaluation: 07:25 Reevaluation 1ST: Unchanged Patient Education/Counseling: Diagnosis, Treatment Family Education/Counseling: No Family Present SEPSIS Sepsis Screen Date sepsis recognized/suspect: May 28, 2025 Time Sepsis recognized/suspect: 521 Recent Procedure: No On Antibiotic Therapy: No Respiratory Rate >20: No Heart Rate >90: No Temp<36 C (96.8 F) or >38.3 C: No SBP <90 or MAP <65 mmHG: No New Acute Mental Status Change: No Is the patient on CPAP, BIPAP,: No Physician Orders Chest Portable (05/28/25 05:24) Electrocardigram (05/28/25 05:24) Head Without Contrast (05/28/25 06:45) Vital Signs Date Time Temp Pulse Resp B/P (MAP) Pulse Ox O2 Delivery O2 Flow Rate FiO2 05/28/25 07:12 98.0 73 13 156/93 (114) 94 98.0 05/28/25 07:12 13 94 Room Air* 0 21 05/28/25 06:56 67 18 162/89 05/28/25 06:03 69 13 94 Room Air* 0 21 05/28/25 05:50 98.3 69 13 140/81 (100) 94 98.3 05/28/25 05:22 62 05/28/25 05:17 97.8 70 18 154/85 96 97.8 Laboratory Tests Test 05/28/25 05:30 White Blood Count 6.9 10^3/uL (4.4-10.8) Medications Medications Dose Ordered Sig/Lenard Route Start Time Stop Time Status Last Admin Dose Admin Aspirin 325 mg ONCE ONCE PO 05/28/25 06:45 05/28/25 06:47 DC 05/28/25 06:57 Morphine Sulfate 4 mg ONCE ONCE IV 05/28/25 06:45 05/28/25 06:47 DC 05/28/25 06:56 Ondansetron HCl 4 mg ONCE ONCE IV 05/28/25 06:45 05/28/25 06:47 DC 05/28/25 06:57 Departure 1 Departure Time of Disposition: 07:25 Impression: Primary Impression: Chest pain Qualified Codes: R07.9 - Chest pain, unspecified Disposition: 09 ADMITTED INPATIENT Condition: Fair Critical Care Note Critical Care Time?: No Stability Stability form required: No Heart Score Heart Score: Heart Score Response (Comments) Value History Moderate Suspicious 1 EKG Normal 0 Age 45-64 1 Risk Factors >3 or Hx ASHD 2 Troponin Normal limit 0 Total 4 BRANDON BRUNO MD May 28, 2025 06:40
[2025-05-28] MEDS: MORPHINE SULFATE 4 MG/ML SYR/VIAL IV ONE (06:56)
[2025-05-28] MEDS: ONDANSETRON HCL 4 MG/2 ML VIAL IV ONE (06:57)
--- NOTE | 2025-05-28 07:23 | DVHHP2 ---
History of Present Illness Reason for Visit: chest pain History of Present Illness 54-year-old female with past medical history of diabetes, GERD, hyperlipidemia, hypertension, and prior gallbladder surgery presents with complaints of chest pain that has been ongoing for two days. She states this is not new, as she has been dealing with intermittent chest pain for the past two years, but this episode is more persistent. She describes the pain as starting on the left side of her chest and radiating down her left arm. It is described as a pressure-like pain. She also reports a constant frontal headache and a feeling of dizziness and generalized weakness. She denies any history of myocardial infarction or a rrhythmia. Notably, she mentions that all symptoms began approximately 12 days ago after taking a dose of Zepbound. On ED evaluation, she received Zofran, morphine, and aspirin. Labs showed a normal CBC. CMP was notable but details were not provided. Pro-time was [address] were [address]. [address] scan of the brain was completed. With ongoing symptoms, the patient will be admitted for further workup of intractable headache and acute chest pain. Past Medical History see HPI above Past Surgical History See HPI above Family History Reviewed, non-contributory to the management of this case. Past Social History The patient lives at home, denies smoking, alcohol or illicit drugs abuse. Review of Systems Constitutional: No: Fever, Chills, Sweats, Weakness, Malaise, Other Eyes: No: Pain, Vision change, Conjunctivae inflammation, Eyelid inflammation, Other, Redness ENT: No: Ear pain, Ear discharge, Nose pain, Nose discharge, Nose congestion, Mouth pain, Mouth swelling, Throat pain, Throat swelling, Other Respiratory: No: Cough, Dry, Shortness of breath, SOB with excertion, Wheezing, Hemoptysis, Pleuritic Pain, Sputum, Wheezing, Other Cardiovascular: Chest Pain; No: Palpitations, Orthopnea, Paroxysmal Noc. Dyspnea, Edema, Lt Headedness, Other Gastrointestinal: No: Nausea, Vomiting, Abdominal Pain, Diarrhea, Constipation, Melena, Hematochezia, Other Genitourinary: No Dysuria, No Frequency, No Incontinence, No Hematuria, No Retention, No Other Musculoskeletal: No: other, neck pain, shoulder pain, arm pain, back pain, hand pain, leg pain, foot pain Skin: No: Rash, Lesions, Jaundice, Bruising, Other Neurological: No: Weakness, Numbness, Incoordination, Change in speech, Confusion, Seizures, Other Allergies: Coded Allergies: NO KNOWN ALLERGIES (Unverified , 01/07/14) Exam Vital Signs Vital Signs Date Time Temp Pulse Resp B/P (MAP) Pulse Ox O2 Delivery O2 Flow Rate FiO2 05/28/25 06:56 67 18 162/89 05/28/25 06:03 94 Room Air* 0 21 05/28/25 05:50 98.3 98.3 General Appearance: Alert, Oriented X3, Cooperative, No acute distress HEENT: Atraumatic, PERRLA, EOMI, Mucous membr. moist/pink Respiratory: Clear to auscultation, Normal air movement Cardiovascular: Regular rate, Normal S1, Normal S2, No murmurs Abdominal: Normal bowel sounds, Soft, No tenderness, No hepatospenomegaly, No masses Extremities: No clubbing, No cyanosis, No edema, Normal pulses, No te nderness/swelling Skin: No rashes, No breakdown, No significant lesion Neuro: Normal gait, Normal speech, Strength at 5/5 X4 ext, Normal tone, Sensation intact, Cranial nerves 3-12 NL Psych/Mental Status: Mental status NL, Mood NL Labs/Xrays Chest x-ray unremarkable CT scan of the brain pending follow up results I reviewed labs, imaging CT scan abdomen pelvis, EKG and all diagnostic studies on this patient from ED records and the medical chart Labs Test 05/28/25 05:30 Range/Units White Blood Count 6.9 4.4-10.8 10^3/uL Red Blood Count 5.03 4.0-5.20 10^6/uL Hemoglobin 15.3 12.2-16.2 g/dL Hematocrit 44.2 36.0-46.0 % Mean Corpuscular Volume 87.8 80.0-100.0 fL Mean Corpuscular Hemoglobin 30.3 28.0-32.0 pg Mean Corpuscular Hemoglobin Concent 34.5 32.0-36.0 g/dL Red Cell Distribution Width 13.1 11.8-14.3 % Platelet Count 252 140-450 10^3/uL Mean Platelet Volume 8.5 6.9-10.8 fL Neutrophils (%) (Auto) 53.1 37.0-80.0 % Lymphocytes (%) (Auto) 39.1 10.0-50.0 % Monocytes (%) (Auto) 5.8 0.0-12.0 % Eosinophils (%) (Auto) 1.2 0.0-7.0 % Basophils (%) (Auto) 0.8 0.0-2.0 % Neutrophils # (Auto) 3.7 1.6-8.6 10 ^3/uL Lymphocytes # (Auto) 2.7 0.4-5.4 10 ^3/uL Monocytes # (Auto) 0.4 0-1.3 10 ^3/uL Eosinophils # (Auto) 0.1 0-0.8 10 ^3/uL Basophils # (Auto) 0.1 0-0.2 10 ^3/uL Nucleated Red Blood Cells 0.0 % Sodium Level 141 136-145 mmol/L Potassium Level 3.6 3.5-5.1 mmol/L Chloride Level 104 98-107 mmol/L Carbon Dioxide Level 26 20-31 mmol/L Anion Gap 11 5-15 Blood Urea Nitrogen 10 9-23 mg/dL Creatinine 0.83 0.550-1.02 mg/dL Glomerular Filtration Rate Calc 83 >90 mL/min BUN/Creatinine Ratio 12.0 10.0-20.0 Serum Glucose 109 H 74-106 mg/dL Calcium Level 9.3 8.7-10.4 mg/dL Troponin I High Sensitivity 3 L </=34 ng/L SEPSIS Sepsis Screen Date sepsis recognized/suspect: May 28, 2025 Time Sepsis recognized/suspect: 521 Recent Procedure: No On Antibiotic Therapy: No Respiratory Rate >20: No Heart Rate >90: No Temp<36 C (96.8 F) or >38.3 C: No SBP <90 or MAP <65 mmHG: No New Acute Mental Status Change: No Is the patient on CPAP, BIPAP,: No Physician Orders Chest Portable (05/28/25 05:24) Electrocardigram (05/28/25 05:24) Head Without Contrast (05/28/25 06:45) D-Dimer (05/28/25 06:56) Admit (05/28/25 07:19) Code Status (05/28/25 07:19) Vital Signs .PER UNIT PROTOCOL (05/28/25 07:19) Grant Writer (05/28/25 07:19) May Elevate Hob ____ Degrees (05/28/25 07:19) Cardiac Diet-2gna,Lofat,Lochol (05/28/25 Breakfast) Aspirin Chewable Tablet (05/28/25 10:00) Morphine Sulfate Injection (05/28/25 07:30) Acetaminophen Tablet (Tylenol Tablet) (05/28/25 07:30) Docusate Sodium Capsule (Colace Capsule) (05/28/25 10:00) Pulse Oximeter Check (05/28/25 07:19) Complete Blood Count (05/29/25 04:00) Comprehensive Metabolic Panel (05/29/25 04:00) Echo 2d Mode Cardiac Dop (05/28/25 07:19) Nitroglycerin Sublingual (Ntrostat Subli (05/28/25 07:30) Ondansetron Hcl (Zofran) (05/28/25 07:30) Vital Signs Date Time Temp Pulse Resp B/P (MAP) Pulse Ox O2 Delivery O2 Flow Rate FiO2 05/28/25 06:56 67 18 162/89 05/28/25 06:03 69 13 94 Room Air* 0 21 05/28/25 05:50 98.3 69 13 140/81 (100) 94 98.3 05/28/25 05:22 62 05/28/25 05:17 97.8 70 18 154/85 96 97.8 Laboratory Tests Test 05/28/25 05:30 White Blood Count 6.9 10^3/uL (4.4-10.8) Medications Medications Dose Ordered Sig/Lenard Route Start Time Stop Time Status Last Admin Dose Admin Aspirin 325 mg ONCE ONCE PO 05/28/25 06:45 05/28/25 06:47 DC 05/28/25 06:57 325 MG Morphine Sulfate 4 mg ONCE ONCE IV 05/28/25 06:45 05/28/25 06:47 DC 05/28/25 06:56 4 MG Ondansetron HCl 4 mg ONCE ONCE IV 05/28/25 06:45 05/28/25 06:47 DC 05/28/25 06:57 4 MG Assessment/Plan Assessment/Plan 54-year-old female admitted for evaluation of acute chest pain with radiation and intractable headache, possibly related to recent Zepbound use. Rule out ACS and assess for any cardiac or neurologic etiology. Acute chest pain, rule out ACS Left-sided chest pain with radiation to left arm Troponins negative x1, EKG no stemi Start ACS protocol: serial troponins, telemetry monitoring Order echocardiogram fu results If elevated troponins or abnormal echo consider cardiology consult tele monitoring ordered asa atorvastin ordered nitro prn along with morphine acute Intractable frontal headache Constant frontal headache, not improved CT brain ordered pending results Neurology consult PRN Symptomatic management with Tylenol or morphine prn acute Dizziness and generalized weakness Monitor vitals, orthostatic BPs Consider contributing factors including dehydration, recent medication cont cards workup ordered ivf for now fall precautions Recent Zepbound use (GLP-1 agonist) (unspecified adverse effect) Symptoms began 12 days after first dose Consider adverse drug reaction Hold future doses until further evaluation enc pt to Report to prescribing provider chronic problems Type 2 Diabetes Mellitus ISS with accucheck ac/hs GERD Hypertension Hyperlipidemia S/P Cholecystectomy FEN / PPx Fluids: IV fluids for hydration Electrolytes: Monitor BMP Nutrition: cardiac diet DVT Prophylaxis: SCDs while inpatient GI Prophylaxis: protonix Disposition Admit to telemetry for ACS rule-out Plan discussed with: Patient My Orders Orders - NIA ALVARADO DNP Procedure Category Date Status Time Admit ADMIT 05/28/25 Verified 07:19 Code Status CODE 05/28/25 Verified 07:19 Vital Signs ZEKE 05/28/25 Verified 07:19 Grant Writer ZEKE 05/28/25 Verified 07:19 May Elevate Hob ____ ZEKE 05/28/25 Verified Degrees 07:19 Cardiac DIET 05/28/25 Verified Diet-2gna,Lofat,Lochol Breakfast Aspirin Chewable PHA 05/28/25 Verified Tablet 10:00 Morphine Sulfate PHA 05/28/25 Verified Injection 07:30 Acetaminophen Tablet PHA 05/28/25 Verified (Tylenol Tablet) 07:30 Docusate Sodium PHA 05/28/25 Verified Capsule (Colace 10:00 Pulse Oximeter Check RT 05/28/25 Verified 07:19 Complete Blood Count LAB 05/29/25 Verified 04:00 Comprehensive LAB 05/29/25 Verified Metabolic Panel 04:00 Echo 2d Mode Cardiac US 05/28/25 Verified DOP 07:19 Nitroglycerin PHA 05/28/25 Verified Sublingual (Ntrostat 07:30 Ondansetron Hcl PHA 05/28/25 Verified (Zofran) 07:30 Date of Service: May 28, 2025 Billing Provider: NIA ALVARADO DNP Common Visit Codes: 36009-[id number] INP/OBS CARE (HIGH) NIA ALVARADO DNP May 28, 2025 07:23
[2025-05-28] MEDS ORDERED: NITROGLYCERIN 0.4 MG SL TAB SL PRN ×2 (07:30)
[2025-05-28] MEDS ORDERED: ONDANSETRON HCL 4 MG/2 ML VIAL IV PRN (07:30)
[2025-05-28] MEDS ORDERED: MORPHINE SULFATE 4 MG/ML SYR/VIAL IV PRN (07:30)
--- NOTE | 2025-05-28 07:58 | DVH ---
CLINICAL INFORMATION: Rule out intracranial hemorrhage. No other clinical information provided. TECHNIQUE: Axial imaging was obtained through the brain without contrast. Coronal and sagittal reformatted images were obtained, reviewed, and stored. Images were reviewed in brain and bone windows. All CT scans at this medical facility are performed using dose modulation techniques as appropriate to a performed exam including the following: Automated exposure control was utilized; adjustment of the MA and/or KV according to patient size; and use of iterative reconstruction technique. CTDIvol = 63.06 mGy DLP = 1241.19 mGy-cm COMPARISON: None FINDINGS: There is no acute intracranial hemorrhage. No mass effect or midline shift. The ventricles and sulci are within normal limits in size for age. Basal cisterns are patent. The calvarium is unremarkable. Mild mucosal thickening of the paranasal sinuses. Retention cyst versus polyp in the left side of the sphenoid sinus. IMPRESSION: No CT evidence of acute intracranial abnormality.
[2025-05-28] MEDS: ATORVASTATIN 20 MG TAB PO ONE (08:23)
[2025-05-28] MEDS: PANTOPRAZOLE 40 MG/10 ML VIAL INJ IV ONE (08:23)
[2025-05-28] MEDS: DOCUSATE SOD 100 MG CAP PO SCH (10:02)
[2025-05-28] MEDS: LOSARTAN POTASSIUM 50 MG TAB PO SCH (10:03)
[2025-05-28] MEDS: hydroCHLOROthiazide 25 MG TAB PO SCH (10:04)
--- NOTE | 2025-05-28 10:09 | ECG ---
[facility] Test Date: 2025-05-28 Test Time: 05:22:53 Pat Name: CYNTHIA PAUL Department: Room: [address] [place] [address] Gender: F [employer]: EAMON : 1970 Requested By: KEYA FRY Order Number: [id number] Reading MD: Maxi Ziegler Measurements Intervals [place] Rate: 62 P: 54 AR: 164 QRS: 75 QRSD: 98 T: 57 QT: 425 QTc: 432 Interpretive Statements Sinus rhythm Electronically Signed On 06-03-2025 18:55:53 PST by Maxi Ziegler Please click the below link to view image of tracing.
[2025-05-28] MEDS ORDERED: TIRZ5INJ2 (12:13)
[2025-05-28] MEDS ORDERED: METF-372 PO (12:14)
[2025-05-28] MEDS ORDERED: LEVO25TA6 PO (12:20)
[2025-05-28] MEDS ORDERED: AMLO1TAB21 PO (12:20)
[2025-05-28] MEDS ORDERED: PANT40T PO (12:21)
[2025-05-28] MEDS ORDERED: DEXTROSE (50%) 50ML SYRG IV PRN (12:30)
[2025-05-28] MEDS: ACETAMINOPHEN 325 MG TAB PO PRN (14:36)
[2025-05-28] MEDS: InsuLIN REG 1unit/0.01ml Soln (100units/ml) SC SCH (16:27)
[2025-05-28] MEDS: ACCU-CHEK COMFORT CURVE STRIP VI SCH (16:28)
[2025-05-29 01:22] VITALS: BP 125/75; PULSE 61; RESP 15; TEMP 98; O2SAT 94
[2025-05-29 03:19] LABS: Hematocrit 44.3 % (36.0-46.0); Hemoglobin 15.0 g/dL (12.2-16.2); Mean Corpuscular Hemoglobin 30.2 pg (28.0-32.0); Mean Corpuscular Volume 88.9 fL (80.0-100.0); Nucleated Red Blood Cells % 0.2 %
[2025-05-29 03:39] LABS: Alanine Aminotransferase 36 U/L (7-40); Albumin 4.3 g/dL (3.2-4.8); Alkaline Phosphatase 105 U/L (46-116); Anion Gap 11 (5-15); BUN/Creatinine Ratio 14.0 (10.0-20.0); Bilirubin, Total 0.5 mg/dL (0.2-1.0); Blood Urea Nitrogen 13 mg/dL (9-23); Calcium 9.9 mg/dL (8.7-10.4); Carbon Dioxide 28 mmol/L (20-31); Chloride 102 mmol/L (98-107); Potassium 3.7 mmol/L (3.5-5.1); Sodium 141 mmol/L (136-145); Total Protein 7.4 g/dL (5.7-8.2)
[2025-05-29 03:41] LABS: Glucose 111 mg/dL (74-106)
[2025-05-29 08:00] VITALS: PULSE 64
[2025-05-29 09:00] VITALS: BP 139/85; PULSE 64; RESP 20; TEMP 98.4; O2SAT 95
[2025-05-29] MEDS: PANTOPRAZOLE 40 MG/10 ML VIAL INJ IV SCH (09:16)
[2025-05-29] MEDS: IBUPROFEN 600 MG TAB PO ONE (12:42)
[2025-05-29 13:00] VITALS: BP 123/66; PULSE 59; RESP 20; TEMP 98.5; O2SAT 95
--- NOTE | 2025-05-29 13:50 | DVHDS2 ---
Discharge Summary Date of Admission May 28, 2025 at 07:19 Date of Discharge: May 29, 2025 Labs/Diagnostic Data: Laboratory Results Test 05/29/25 11:25 05/29/25 02:53 05/28/25 08:43 05/28/25 05:30 POC Glucose 90 mg/dl (70-106) White Blood Count 7.3 10^3/uL (4.4-10.8) Red Blood Count 4.98 10^6/uL (4.0-5.20) Hemoglobin 15.0 g/dL (12.2-16.2) Hematocrit 44.3 % (36.0-46.0) Mean Corpuscular Volume 88.9 fL (80.0-100.0) Mean Corpuscular Hemoglobin 30.2 pg (28.0-32.0) Mean Corpuscular Hemoglobin Concent 34.0 g/dL (32.0-36.0) Red Cell Distribution Width 13.0 % (11.8-14.3) Platelet Count 257 10^3/uL (140-450) Mean Platelet Volume 8.5 fL (6.9-10.8) Neutrophils (%) (Auto) 44.1 % (37.0-80.0) Lymphocytes (%) (Auto) 46.8 % (10.0-50.0) Monocytes (%) (Auto) 5.9 % (0.0-12.0) Eosinophils (%) (Auto) 2.3 % (0.0-7.0) Basophils (%) (Auto) 0.9 % (0.0-2.0) Neutrophils # (Auto) 3.2 10 ^3/uL (1.6-8.6) Lymphocytes # (Auto) 3.4 10 ^3/uL (0.4-5.4) Monocytes # (Auto) 0.4 10 ^3/uL (0-1.3) Eosinophils # (Auto) 0.2 10 ^3/uL (0-0.8) Basophils # (Auto) 0.1 10 ^3/uL (0-0.2) Nucleated Red Blood Cells 0.2 % Sodium Level 141 mmol/L (136-145) Potassium Level 3.7 mmol/L (3.5-5.1) Chloride Level 102 mmol/L (98-107) Carbon Dioxide Level 28 mmol/L (20-31) Anion Gap 11 (5-15) Blood Urea Nitrogen 13 mg/dL (9-23) Creatinine 0.93 mg/dL (0.550-1.02) Glomerular Filtration Rate Calc 73 mL/min (>90) BUN/Creatinine Ratio 14.0 (10.0-20.0) Serum Glucose 111 mg/dL (74-106) Calcium Level 9.9 mg/dL (8.7-10.4) Total Bilirubin 0.5 mg/dL (0.2-1.0) Aspartate Amino Transferase (AST) 35 U/L (13-40) Alanine Aminotransferase (ALT) 36 U/L (7-40) Alkaline Phosphatase 105 U/L (46-116) Total Protein 7.4 g/dL (5.7-8.2) Albumin 4.3 g/dL (3.2-4.8) Troponin I High Sensitivity 3 ng/L (</=34) D-Dimer, Quantitative 0.33 mg/L FEU (0.0-0.49) Magnesium Level 2.3 mg/dL (1.6-2.6) Other Laboratory Tests 05/29/25 02:53 Brief Hx & Hospital Course: 54-year-old female with past medical history of diabetes, GERD, hyperlipidemia, hypertension, and prior gallbladder surgery presents with complaints of chest pain that has been ongoing for two days. She states this is not new, as she has been dealing with intermittent chest pain for the past two years, but this episode is more persistent. She describes the pain as starting on the left side of her chest and radiating down her left arm. It is described as a pressure-like pain. She also reports a constant frontal headache and a feeling of dizziness and generalized weakness. She denies any history of myocardial infarction or arrhythmia. Notably, she mentions that all symptoms began approximately 12 days ago after taking a dose of Zepbound. On ED evaluation, she received Zofran, morphine, and aspirin. Labs showed a normal CBC. CMP was notable but details were not provided. Pro-time was 1 and troponins were negative. CT scan of the brain was completed. With ongoing symptoms, the patient will be admitted for further workup of intractable headache and acute chest pain. All workup negative for chest pain, troponins neagtive Condition at Discharge: Good Final Diagnosis/Problems List chest pain muscoloskeletal Discharge Disposition: Home Discharge Instruct/Medications Diet: Regular Activity: No Restrictions, As Tolerated Follow Up/Referral: PCP in 7d ays Medications: same home medications Scheduled Amlodipine Besylate (Amlodipine Besylate), 1 TAB PO DAILY, (Reported) Levothyroxine Sodium (Levothyroxine Sodium), 1 TAB PO DAILY, (Reported) Losartan Potassium & Hydrochlo (Losartan Potassium/Hydroc), 1 TAB PO DAILY, (Reported) Metformin Hydrochloride (Metformin Hcl), 1 TAB PO BID, (Reported) [place] 3 Fatty Acids-[place] 6 FA ([place] Dha), 1,000 TAB PO DAILY, (Reported) Pantoprazole Sodium Sesquihydr (Pantoprazole Sodium), 1 TAB PO DAILY, (Reported) Simvastatin (Simvastatin), 1 DAILY, (Reported) Scheduled PRN Ibuprofen Micronized (Motrin Tablet), 600 MG PO TID PRN Miscellaneous Medications Tirzepatide (Zepbound), (Reported) Discharge Statement: "Patient was advised to return to the ER or call 911 if any headaches, dizziness, shortness of breath, chest pain, abdominal pain, bleeding, fevers, or worsening of medical condition. Patient was counseled about treatment plan, medications, possible side effects, patientverbalized understanding. All questions were answered to the best of my ability. This discharge took greater then 30 minutes in planning, reviewing documentation, counseling the patient, and discussing with other team members." ASSESSMENT ASSESSMENT Assessment chest pain muscoloskeletal Date of Service: May 29, 2025 Billing Provider: RISA YING MD Common Visit Codes: 25715-LNY/OBS DISCH DAY >30min RISA YING MD May 29, 2025 13:50
== END 2025-05-29 15:42 | disposition home or self-care (01) | DRG 203 ==
LOC: ER 05:07 → OVERFLOW 07:19
PROVIDERS: ADMIT Hospitalist; ATTEND Hospitalist
DX: R07.89 Other chest pain (principal); E11.9 Type 2 diabetes mellitus without complications; I10 Essential (primary) hypertension; R51.9 Headache, unspecified; E78.5 Hyperlipidemia, unspecified; K21.9 Gastro-esophageal reflux disease without esophagitis; R42 Dizziness and giddiness; Z90.49 Acquired absence of other specified parts of digestive tract; Z83.3 Family history of diabetes mellitus
CPT/HCPCS: 36415; 70450; 71045; 80048; 80053; 82962; 83735; 84484; 85025; 85379; 93005; 96374; 96375; G0378; J1815; J2405; J2470